=== PATIENT | male | born 1980 | race Hispanic/Latino ===

== ENCOUNTER 2016-08-14 16:22 | Observation (INO) | payer SELFPAY ==
[~2016-08-14] VITALS: Ht 167.6 cm; Wt 65.1 kg
[2016-08-14] MEDS ORDERED: PRD10T PO (16:58)
[2016-08-14] MEDS ORDERED: BACL10TA PO (16:58)
--- NOTE | 2016-08-14 17:59 | ED Back Pain ---
General Chief Complaint: Back Problems Stated Complaint: BACK PAIN Nursing Triage Note: PT CO NECK AND CERVICAL PAIN STARTED IN JUNE, CO OF R HAND NUMBNESS TO SHOULDER, STARTED YESTERDAY, STATES NOT ABLE TO WALK WITHOUT CRUTCHES. HAS BEEN SEEN IN [place] AND [facility] Sepsis Screen: No Definite Risk Source of Information: Patient Exam Limitations: No Limitations History of Present Illness Time Seen by Provider: 17:57 Initial Comments To ER with right arm numbness for the past week. States that his legs feel very weak and is unable to walk without using crutches. The right arm numbness is a new symptom but the leg weakness has been going on for a few months. He was seen at [facility] in [place] a little over a month ago and was ultimately transferred to [facility] in [place]. Ultimately he was placed on prednisone and baclofen which she continues to be on. Those medications did initially tremendously improve his symptoms. Location: C-Spine Timing/Duration: Getting Worse, Intermittent Severity: Moderate Associated Symptoms: fever Allergies and Home Medications Allergies Coded Allergies: No Allergy Information Available (Unverified , 05/14/14) Home Medications Baclofen 10 Mg Tablet, 10 MG PO TID, (Reported) Prednisone 10 Mg Tab, 10 MG PO DAILY, (Reported) Constitutional: see HPI EENTM: see HPI Respiratory: no symptoms reported Cardiovascular: no symptoms reported Genitourinary: no symptoms reported Musculoskeletal: see HPI, back pain Skin: no symptoms reported Past Gbadlbt-Gugdxl-Ycfkmv Hx Patient Social History Alcohol Use: Denies Use Recreational Drug Use: No Smoking Status: Never a Smoker Recent Foreign Travel: No Contact w/Someone Who Travel: No Recent Infectious Disease Expo: No Physical Exam Vital Signs Vital Sign - Last 12Hours 08/14/16 16:40 Temp 99.6 Pulse 70 Resp 18 B/P (MAP) 95/59 Pulse Ox 97 O2 Delivery Room Air Capillary Refill : Less Than 3 Seconds General Appearance: No Apparent Distress, WD/WN HEENT: PERRL/EOMI, TMs Normal Neck: Full Range of Motion, Other (pain without tenderness to palpation of the occiput and cervical spine) Cardiovascular: Regular Rate, Rhythm Respiratory: Chest Non Tender, Normal Breath Sounds, No Accessory Muscle Use, No Respiratory Distress Gastrointestinal: Normal Bowel Sounds, Non Tender, Soft Extremity: Normal Capillary Refill, Normal Inspection Neurologic/Psychiatric: Alert, Oriented x3 Skin: Normal Color, Warm/Dry Comments Reflexes are 2 out of 5 throughout. He states that lower extremities feel little bit numb bilaterally however he maintains sensation to light skin touch with a paper clip and sharp and dull differentiation bilaterally. Progress/Results/Core Measures Results/Orders Lab Results Laboratory Tests Test 08/14/16 18:05 08/14/16 19:20 Range/Units Urine Color YELLOW Urine Clarity CLEAR Urine pH 8 5-9 Urine Specific [place] 1.010 L 1.016-1.022 Urine Protein NEGATIVE NEGATIVE Urine Glucose (UA) NEGATIVE NEGATIVE Urine Ketones NEGATIVE NEGATIVE Urine Nitrite NEGATIVE NEGATIVE Urine Bilirubin NEGATIVE NEGATIVE Urine Urobilinogen NORMAL NORMAL MG/DL Urine Leukocyte Esterase 1+ H NEGATIVE Urine RBC (Auto) NEGATIVE NEGATIVE Urine RBC NONE /HPF Urine WBC NONE /HPF Urine Squamous Epithelial Cells NONE /HPF Urine Crystals NONE /LPF Urine Bacteria NEGATIVE /HPF Urine Casts NONE /LPF Urine Mucus NEGATIVE /LPF Urine Culture Indicated NO White Blood Count 11.2 H 4.3-11.0 10^3/uL Red Blood Count 5.27 4.35-5.85 10^6/uL Hemoglobin 15.7 13.3-17.7 G/DL Hematocrit 45 40-54 % Mean Corpuscular Volume 85 80-99 FL Mean Corpuscular Hemoglobin 30 25-34 PG Mean Corpuscular Hemoglobin Concent 35 32-36 G/DL Red Cell Distribution Width 12.2 10.0-14.5 % Platelet Count 215 130-400 10^3/uL Mean Platelet Volume 11.0 H 7.4-10.4 FL Neutrophils (%) (Auto) 76 H 42-75 % Lymphocytes (%) (Auto) 15 12-44 % Monocytes (%) (Auto) 8 0-12 % Eosinophils (%) (Auto) 1 0-10 % Basophils (%) (Auto) 0 0-10 % Neutrophils # (Auto) 8.5 H 1.8-7.8 X 10^3 Lymphocytes # (Auto) 1.6 1.0-4.0 X 10^3 Monocytes # (Auto) 0.9 0.0-1.0 X 10^3 Eosinophils # (Auto) 0.1 0.0-0.3 10^3/uL Basophils # (Auto) 0.0 0.0-0.1 10^3/uL Erythrocyte Sedimentation Rate 8 0-15 MM/HR Sodium Level 139 135-145 MMOL/L Potassium Level 3.7 3.6-5.0 MMOL/L Chloride Level 105 98-107 MMOL/L Carbon Dioxide Level 23 21-32 MMOL/L Anion Gap 11 5-14 MMOL/L Blood Urea Nitrogen 11 7-18 MG/DL Creatinine 0.86 0.60-1.30 MG/DL Estimat Glomerular Filtration Rate > 60 BUN/Creatinine Ratio 13 Glucose Level 107 H 70-105 MG/DL Calcium Level 9.8 8.5-10.1 MG/DL Total Bilirubin 0.5 0.1-1.0 MG/DL Aspartate Amino Transf (AST/SGOT) 17 5-34 U/L Alanine Aminotransferase (ALT/SGPT) 21 0-55 U/L Alkaline Phosphatase 65 40-136 U/L Total Protein 7.5 6.4-8.2 G/DL Albumin 4.5 3.2-4.5 G/DL My Orders Orders - YUDITH ANGELES CLASS B [employer]IVER Mri Cervical Spine W/O Contras (08/14/16 17:36) Mri Thoracic Spine W/O Con (08/14/16 17:36) Mri Lumbar Spine W/O Contrast (08/14/16 17:36) Ua Culture If Indicated (08/14/16 18:00) Cbc With Automated Diff (08/14/16 18:00) Comprehensive Metabolic Panel (08/14/16 18:00) Erythrocyte Sedimentation Rate (08/14/16 18:00) Saline Lock/Iv-Start (08/14/16 18:00) Methylprednisolone Sod Succ (Solu-Medrol (08/14/16 18:30) Ns Iv 500 Ml (Sodium Chloride 0.9%) (08/14/16 18:30) Acute Abd Series (08/14/16 18:40) Bladder Scan (08/14/16 19:48) Fentanyl Injection (Sublimaze Injection (08/14/16 20:30) Medications Given in ED Current Medications Medications Dose Ordered Sig/Joanne Route Start Time Stop Time Status Last Admin Dose Admin Fentanyl Citrate 50 mcg ONCE ONCE IVP 08/14/16 20:30 08/14/16 20:31 DC 08/14/16 20:38 50 MCG Methylprednisolone Sodium Succinate 1000 mg/Sodium Chloride 100 ml @ 100 mls/hr ONCE ONCE IV 08/14/16 18:30 08/14/16 19:29 DC 08/14/16 19:33 100 MLS/HR Vital Signs/I&O Vital Sign - Last 12Hours 08/14/16 08/14/16 16:40 20:38 Temp 99.6 99.6 Pulse 70 Resp 18 B/P (MAP) 95/59 Pulse Ox 97 O2 Delivery Room Air Blood Pressure Mean: 71 Progress Note : Progress Note 1812-patient is able to ambulate with the use of crutches to the bathroom that his gait is very abnormal. He does not have urinary retention as he is able to urinate for us on command. Diagnostic Imaging Diagonstic Imaging: Xray, MRI Comments NAME: EDNA WHITTAKER [facility] REC#: [id number] PT STATUS: REG ER : 1980 PHYSICIAN: YUDITH ANGELES APRN ADMIT DATE: 08/14/16/ER Draft Date of Exam:08/14/16 MRI LUMBAR SPINE W/O CONTRAST PROCEDURE: MRI lumbar spine. TECHNIQUE: Multiplanar, multisequence MRI of the lumbar spine was performed without contrast. INDICATION: Lumbar spine pain for one month. No known injury. FINDINGS: There is normal height and alignment of the lumbar vertebral bodies. Disc spaces are well maintained. No disc herniation or bony stenosis is seen at any level. There is minimal bulging of the annulus at L4-L5. There is no fracture. There is no mass. IMPRESSION: No significant abnormality is seen. Dictated on workstation # [id number] Dict: 08/14/161915 Trans: 08/14/161917 [id number] Interpreted by: CATRACHO BAIRD MD Electronically signed by: NAME: EDNA WHITTAKER [facility] REC#: [id number] PT STATUS: REG ER : 1980 PHYSICIAN: YUDITH ANGELES APRN ADMIT DATE: 08/14/16/ER Signed Date of Exam:08/14/16 MRI CERVICAL SPINE W/O CONTRAS PROCEDURE: MR imaging cervical spine without contrast. TECHNIQUE: Multiplanar, multisequence MR imaging of the cervical spine was performed without contrast. INDICATION: 36-year-old male with upper spine pain for one month, no known injury or previous spine surgeries COMPARISONS: None FINDINGS: The craniovertebral junction is normal. The cervical cord does show several small foci of increased T2 signal on the mid cervical level to the upper thoracic at T1 and T2 levels. There is no evidence of cord edema or cord expansion. Cervical vertebral bodies appear well aligned and vertebral body heights appear well-maintained. Discs appear reasonably well hydrated with some very mild disc degeneration at C5-C6. There is no evidence of canal stenosis or neuroforaminal encroachment. The visualized vascular flow voids are unremarkable. The parapharyngeal and paraspinous soft tissues are also grossly unremarkable. IMPRESSION: Small focal areas of increased to T2 signal within the mid and lower cervical cord and the upper cervical cord. No significant cord edema is seen. Differential includes possible demyelinating process such as MS. A transverse myelitis is within differential. Remote possibility of a neoplastic process is not excluded. A postcontrast study as well as MRI of the total spine including thoracic and lumbar spine is recommended. There are no areas of canal stenosis or neuroforaminal encroachment. Dictated by: Dictated on workstation # [id number] Dict: 08/14/161837 Trans: 08/14/161900 [id number] Interpreted by: OLMAN CONNOLLY MD Electronically signed by: OLMAN CONNOLLY MD 08/14/161900 NAME: EDNA WHITTAKER [facility] REC#: [id number] PT STATUS: REG ER : 1980 PHYSICIAN: YUDITH ANGELES APRN ADMIT DATE: 08/14/16/ER Signed Date of Exam:08/14/16 MRI THORACIC SPINE W/O CON INDICATION: Upper spine pain for one month. TECHNIQUE: Multiplanar imaging of the thoracic spine was performed without contrast. COMPARISON: No prior studies are available for comparison. FINDINGS: There is normal height and alignment of the thoracic vertebral bodies. No disc herniation or bony stenosis is seen at any level. No acute bony abnormality is seen. There is no mass. There is no intrinsic abnormality of the thoracic cord. IMPRESSION: No significant abnormality is seen. Dictated by: Dictated on workstation # [id number] Dict: 08/14/161857 Trans: 08/14/161916 [facility] [id number] Interpreted by: CATRACHO BAIRD MD Electronically signed by: CATRACHO BAIRD MD 08/14/161916 Departure Communication Time/Spoke to Admitting Phy: 22:[address] Boone except patient for observation admission pending transportation Progress Notes 1815- old records including the discharge summary from [facility] included principle diagnosis of acute transverse myelitis. The date of this discharge summary was 07-18-16. Secondary diagnosis was acute urinary retention , paresthesia of both lower extremities and spastic paraplegia. Laboratory workup were negative, MRI showed a hyperintense signal from elevated C4 to T1 to 2 region suggestive of transverse myelitis. He was given IV methylprednisolone with improvement in lower extremities strength but only minimal improvement and gait. He was felt to have some associated anxiety and was started on Effexor. 1929-patient does not want to go back to [facility]. Would rather go to [facility]. 1945-postvoid residual bladder scan shows 110 ml in the bladder. 2022-Dr. Rodriguez from neurology has accepted the patient in transfer to the [facility]. He will be transported via ground. 2208-EMS will not be back from transport until 1 a.m. At that time, that would be their second transport to so they would be unable to transport that far again tonight according to lathing supervisor. They will be able to transport again at 8 a.m. pending no other necessary transfers. I called the [facility] who states that they will call us with a revised bed number at 730 or 8 a.m. I relayed this to tanja from EMS who is aware of the plan to transport in the morning. We will admit the patient and intensive care unit overnight with serial pulmonary function testing overnight to Dr. Boone. Patient is not critical enough to need flown. [facility] cannot transport. [facility] cannot transport. Transfer care out of [place] will not transport Impression Impression: Primary Impression: Transverse myelitis Disposition: ADMITTED INPATIENT Condition: Stable Departure-Patient Inst. Decision time for Depature: 20:22 Referrals: NO,LOCAL PHYSICIAN (PCP) Primary Care Physician YUDITH ANGELES CLASS B TRUCK DRIVER Aug 14, 2016 17:59
[2016-08-14 18:12] LABS: BILIRUBIN,URINE NEGATIVE (NEGATIVE); KETONES,URINE NEGATIVE (NEGATIVE); LEUKOCYTE ESTERASE ,URINE 1+ (NEGATIVE); NITRITE,URINE NEGATIVE (NEGATIVE); PH,URINE 8 (5-9); PROTEIN,URINE NEGATIVE (NEGATIVE); UROBILINOGEN,URINE NORMAL (NORMAL)
[2016-08-14] MEDS ORDERED: NS IV 500 ML 500 ML IV SCH (18:30)
[2016-08-14] MEDS ORDERED: methylPREDNISolone SOD SUCC 1,000 MG in NS (IVPB) 100 ML IV ONE (18:30)
--- NOTE | 2016-08-14 18:45 | Diagnostic Imaging Report ---
PROCEDURE: MR imaging cervical spine without contrast. TECHNIQUE: Multiplanar, multisequence MR imaging of the cervical spine was performed without contrast. INDICATION: 36-year-old male with upper spine pain for one month, no known injury or previous spine surgeries COMPARISONS: None FINDINGS: The craniovertebral junction is normal. The cervical cord does show several small foci of increased T2 signal on the mid cervical level to the upper thoracic at T1 and T2 levels. There is no evidence of cord edema or cord expansion. Cervical vertebral bodies appear well aligned and vertebral body heights appear well-maintained. Discs appear reasonably well hydrated with some very mild disc degeneration at C5-C6. There is no evidence of canal stenosis or neuroforaminal encroachment. The visualized vascular flow voids are unremarkable. The parapharyngeal and paraspinous soft tissues are also grossly unremarkable. IMPRESSION: Small focal areas of increased to T2 signal within the mid and lower cervical cord and the upper cervical cord. No significant cord edema is seen. Differential includes possible demyelinating process such as MS. A transverse myelitis is within differential. Remote possibility of a neoplastic process is not excluded. A postcontrast study as well as MRI of the total spine including thoracic and lumbar spine is recommended. There are no areas of canal stenosis or neuroforaminal encroachment. Dictated by: Dictated on workstation # [id number]
--- NOTE | 2016-08-14 19:02 | Diagnostic Imaging Report ---
INDICATION: Upper spine pain for one month. TECHNIQUE: Multiplanar imaging of the thoracic spine was performed without contrast. COMPARISON: No prior studies are available for comparison. FINDINGS: There is normal height and alignment of the thoracic vertebral bodies. No disc herniation or bony stenosis is seen at any level. No acute bony abnormality is seen. There is no mass. There is no intrinsic abnormality of the thoracic cord. IMPRESSION: No significant abnormality is seen. Dictated by: Dictated on workstation # [id number]
--- NOTE | 2016-08-14 19:18 | Diagnostic Imaging Report ---
PROCEDURE: MRI lumbar spine. TECHNIQUE: Multiplanar, multisequence MRI of the lumbar spine was performed without contrast. INDICATION: Lumbar spine pain for one month. No known injury. FINDINGS: There is normal height and alignment of the lumbar vertebral bodies. Disc spaces are well maintained. No disc herniation or bony stenosis is seen at any level. There is minimal bulging of the annulus at L4-L5. There is no fracture. There is no mass. IMPRESSION: No significant abnormality is seen. Dictated by: Dictated on workstation # [id number]
--- NOTE | 2016-08-14 19:25 | Diagnostic Imaging Report ---
INDICATION: Back pain. Transverse myelitis The upright chest shows no abnormality. Supine and upright views of the abdomen show normal bowel gas pattern. There is no free intraperitoneal air. No mass or calculus is seen. There is no bony abnormality. IMPRESSION: No abnormality is seen. Dictated by: Dictated on workstation # [id number]
[2016-08-14 19:37] LABS: BASOPHILS % (AUTO) 0 % (0-10); EOSINOPHILS # (AUTO) 0.1 10^3/uL (0.0-0.3); EOSINOPHILS % (AUTO) 1 % (0-10); LYMPHOCYTES # (AUTO) 1.6 X 10^3 (1.0-4.0); LYMPHOCYTES % (AUTO) 15 % (12-44); MEAN CORPUSCULAR HEMOGLOBIN 30 PG (25-34); MEAN CORPUSCULAR HGB CONC 35 G/DL (32-36); MEAN CORPUSCULAR VOLUME 85 FL (80-99); MONOCYTES # (AUTO) 0.9 X 10^3 (0.0-1.0); MONOCYTES % (AUTO) 8 % (0-12); NEUTROPHILS # (AUTO) 8.5 X 10^3 (1.8-7.8); NEUTROPHILS % (AUTO) 76 % (42-75); PLATELET COUNT 215 10^3/uL (130-400); RED BLOOD COUNT 5.27 10^6/uL (4.35-5.85); RED CELL DISTRIBUTION WIDTH 12.2 % (10.0-14.5); WHITE BLOOD COUNT 11.2 10^3/uL (4.3-11.0)
[2016-08-14 19:58] LABS: ALANINE AMINOTRANSFERASE 21 U/L (0-55); ALBUMIN 4.5 G/DL (3.2-4.5); ANION GAP 11 MMOL/L (5-14); ASPARTATE AMINO TRANSFERASE 17 U/L (5-34); BILIRUBIN,TOTAL 0.5 MG/DL (0.1-1.0); BLOOD UREA NITROGEN 11 MG/DL (7-18); BUN/CREATININE RATIO 13; CALCIUM 9.8 MG/DL (8.5-10.1); CARBON DIOXIDE 23 MMOL/L (21-32); CHLORIDE 105 MMOL/L (98-107); CREATININE SERUM 0.86 MG/DL (0.60-1.30); GFR ESTIMATED > 60; GLUCOSE 107 MG/DL (70-105); POTASSIUM 3.7 MMOL/L (3.6-5.0); SODIUM 139 MMOL/L (135-145); TOTAL PROTEIN 7.5 G/DL (6.4-8.2)
[2016-08-14 20:08] LABS: ERYTHROCYTE SEDIMENTATION RATE 8 MM/HR (0-15)
[2016-08-14] MEDS ORDERED: fentaNYL INJECTION 100 MCG/2 ML AMP IVP ONE (20:30)
[2016-08-15] VITALS (15 sets, daily range): BP systolic 100–133; BP diastolic 60–74
[2016-08-15] MEDS ORDERED: NS IV 1000 ML 1,000 ML IV SCH (00:45)
[2016-08-15] MEDS ORDERED: LORA1TAB PO (08:46)
--- NOTE | 2016-08-15 09:20 | Short Stay Summary-Hospitalist ---
HPI History of Present Illness: HPI/Chief Complaint The patient is a 36-year-old male. His Dutch is rated fair. He reports that about 2 months ago he began to have trouble with his legs and the ability to walk. He was seen at [facility] and transferred to [facility] in [place]. He ultimately was given a diagnosis of transverse myelitis. He was placed on steroids and had some initial improvement. He returned to [place] on or about July 18. He reports that he has been slowly but surely declining since then. He is walking with a walker and was able to do so yesterday. He reports that yesterday he had much more pain in his left leg then he had had before. He also reports some loss of function in his left hand. This especially applies to fingers 4 and 5. He also reports some numbness in the ulnar half of the left volar forearm. After his presentation in the emergency room arrangements were made to transfer him to [facility] and a bed was secured. [facility] ambulance service was unable to supply transfer at that time and promised that this morning. agreed to reassign a bed this morning. He was placed on steroids to begin his treatment. Source: patient Exam Limitations: no limitations Date Seen 08/15/16 Attending Physician Adan Guzman MD PCP No,Local Physician Referring Physician Date of Admission Aug 14, 2016 at 22:16 Home Medications & Allergies Home Medications Reviewed patient Home Medication Reconciliation Form Allergies Allergies Coded Allergies No Allergy Information Available (Unverified05/14/14) Past Ekpshlc-Ugvesr-Ejkgmo Hx Patient Social History Alcohol Use: Denies Use Recreational Drug Use: No Smoking Status: Never a Smoker Physical Abuse Screen: No Sexual Abuse: No Recent Foreign Travel: No Contact w/other who traveled: No Recent Hopitalizations: Yes Recent Infectious Disease Expo: No Seasonal Allergies Seasonal Allergies: No Review of Systems Constitutional: see HPI EENTM: no symptoms reported Respiratory: no symptoms reported Cardiovascular: no symptoms reported Gastrointestinal: no symptoms reported Genitourinary: no symptoms reported Musculoskeletal: see HPI Skin: no symptoms reported Psychiatric/Neurological: See HPI, Numbness, Weakness Physical Exam Physical Exam Vital Signs Vital Sign - Last 12Hours 08/14/16 08/15/16 16:40 02:20 Temp 99.6 Pulse 70 Resp 18 B/P (MAP) 95/59 Pulse Ox 97 O2 Delivery Room Air FiO2 97 Capillary Refill : Less Than 3 Seconds General Appearance: Mild Distress Eyes: Bilateral Eye Normal Inspection HEENT: Normal ENT Inspection Neck: Normal Inspection Respiratory: Chest Non Tender, Lungs Clear, Normal Breath Sounds, No Accessory Muscle Use, No Respiratory Distress Cardiovascular: Regular Rate, Rhythm, No Edema, No Gallop, No JVD, No Murmur, Normal Peripheral Pulses Gastrointestinal: Normal Bowel Sounds, No Organomegaly, No Pulsatile Mass, Non Tender, Soft Back: Normal Inspection, No CVA Tenderness, No Vertebral Tenderness Extremity: Normal Capillary Refill, Normal Inspection, Normal Range of Motion, Non Tender, No Calf Tenderness, No Pedal Edema Skin: Normal Color, Warm/Dry Lymphatic: No Adenopathy (0 the patient Exhibits) Comments The patient exhibits inability to fully clench his left hand. There appears to be some numbness particularly in the fifth finger but also perhaps the fourth. He is able to straight leg lift bilaterally with heels off the bed. Results Results/Procedures Lab Laboratory Tests 08/14/16 19:20 Short Stay Diagnosis Discharge Diagnosis-Short Stay Admission Diagnosis History of transverse myelitis with recrudescence of symptoms Final Discharge Diagnosis History of transverse myelitis with recrudescence of symptoms Conclusion Plan Transfer to [facility] for definitive Clinical Quality Measures DVT/VTE Risk/Contraindication: Risk Factor Score Per Nursin RFS Level Per Nursing on Admit: 2=Moderate ADAN GUZMAN MD Aug 15, 2016 09:20
[2016-08-15] MEDS ORDERED: CATHETER FLUSH 10 ML SYR IV PRN (09:30)
== END 2016-08-15 09:10 | disposition short-term general hospital (02) ==
LOC: EDUNIT# 16:22 → ER 16:25 → ICU 22:16 → UNDOADMOB 22:16 → ICU 23:00 → UNDODISOB 08-15 09:10
PROVIDERS: ADMIT Internal Medicine; ATTEND Internal Medicine
DX: G37.3 Acute transverse myelitis in demyelinating disease of central nervous system (principal)
CPT/HCPCS: 36415; 72141; 72146; 72148; 74022; 80053; 81000; 85025; 85652; 94150; 96361; 96374; 96375; G0378

== ENCOUNTER 2016-11-13 18:06 | Emergency (ER) | payer SELFPAY ==
[~2016-11-13] VITALS: Ht 167.6 cm; Wt 65.1 kg
[~2016-11-13 18:06] MED LIST: BACL10TA PO; LORA1TAB PO; PRD10T PO
[2016-11-13] MEDS ORDERED: fentaNYL INJECTION 100 MCG/2 ML AMP IVP STA (19:05)
[2016-11-13] MEDS ORDERED: NS IV 500 ML 500 ML IV ONE (19:05)
--- NOTE | 2016-11-13 19:05 | ED Neurological Problem ---
General Chief Complaint: General Problems/Pain Stated Complaint: UPPER BACK PAIN Nursing Triage Note: PT AMBULATED TO ROOM WITH ONE CRUTCH. PT NEPHEW CAME TO ROOM WITH US TO TRANSLATE. PT HAS BEEN HERE BEFORE FOR THE SAME CHRONIC UPPER BACK PAIN AND WAS SENT TO AND MEDICATION WAS RECEIVED. PT STATES BACK PAIN COME BACK FOR 2 MONTHS NOW. PT STATES THAT HIS BILAT ARMS FEEL LIKE "THEY ARE BURNING". NO OTHER ISSUES NOTED AT THIS TIME. Nursing Sepsis Screen: No Definite Risk Source: patient, family (provided interpretation) Exam Limitations: language barrier History of Present Illness Time seen by provider: 18:51 Initial Comments Patient presents to ER by private conveyance with his family were provided and tripped interpretation Faroese and Italian. He is complaining of burning in his arms with acute pain and numbness on the ulnar side of his bilateral arms. He also feels a burning pain in his upper thoracic spine. He also has spasming and tightness as well as pain in both sides of his legs. He states this started about middle of July 2016 when he came in the ER and was worked up given MRIs started on high-dose steroids and then transferred to and see to see a neurologist. Since then they put him on steroids and he got better but he felt that the pain is always been there. He has been on 20 mg prednisone twice daily for about for 5 months. He states he does not feel that is helping. He did miss an appointment with a neurologist because of a miscommunication and has been calling every week to get another appointment but does not have an appointment yet. He says he is not interested in returning to today rather he just wants us to give him something to make the pain go away. Review of old records show MRIs and neurology notes from [facility] where he was diagnosed with transverse myelitis and started on high potency steroids where his symptoms began to improve. He was in set up for outpatient follow-up. Allergies and Home Medications Allergies Coded Allergies: No Allergy Information Available (Unverified , 05/14/14) Home Medications Baclofen 10 Mg Tablet, 5 MG PO TID PRN for MUSCLE SPASMS, (Reported) TAKES 1/2 OF A (10 MG) TABLET Lorazepam 1 Mg Tablet, 1 MG PO Q6H PRN for MUSCLE SPASMS, (Reported) Prednisone 10 Mg Tab, 10 MG PO DAILY, (Reported) Constitutional: No chills, No diaphoresis, No dizziness, No fever Eyes: Denies Blindness, Denies Blurred Vision Respiratory: No cough, No short of breath Cardiovascular: No chest pain, No edema, No syncope Gastrointestinal: No abdominal pain, No constipation, No diarrhea, No nausea Genitourinary: No dysuria, No frequency, No incontinence (bowel or bladder) Musculoskeletal: see HPI Skin: No pruritus, No rash Psychiatric/Neurological: See HPI, Denies Headache, Numbness Past Siwxbah-Abfpfu-Farscc Hx Patient Social History Alcohol Use: Denies Use Recreational Drug Use: No Smoking Status: Never a Smoker 2nd Hand Smoke Exposure: No Recent Foreign Travel: No Contact w/Someone Who Travel: No Recent Infectious Disease Expo: No Recent Hopitalizations: Yes ([facility] MONTHS AGO DUE TO BACK PAIN) Immunizations Up To Date Tetanus Booster (TDap): Unknown Seasonal Allergies Seasonal Allergies: No Physical Exam Vital Signs Vital Sign - Last 12Hours 11/13/16 18:26 Temp 98.2 Pulse 71 Resp 18 B/P (MAP) 133/90 Pulse Ox 98 O2 Delivery Room Air Capillary Refill : Less Than 3 Seconds General Appearance: WD/WN, mild distress HEENT: PERRL/EOMI, pharynx normal Neck: non-tender, full range of motion, supple, normal inspection Respiratory: chest non-tender, lungs clear, normal breath sounds Cardiovascular: normal peripheral pulses, regular rate, rhythm, no edema Peripheral Pulses: 4+ Dorsalis Pedis (R), 4+ Left Dors-Pedis (L), 4+ Radial Pulses (R), 4+ Radial Pulses (L) Gastrointestinal: normal bowel sounds, non tender, soft Back: normal inspection, vertebral tenderness (upper thoracic midline) Extremities: normal range of motion, normal inspection, no pedal edema, normal capillary refill Neurologic/Psychiatric: racing board marker II-XII nml as tested, alert, oriented x 3, No abnormal cerebellar tests, sensory deficit (ulnar sided paresthesias and I will dining especially on the left arm from the fingertips of fourth and fifth digit all the way up to his shoulder laterally. General paresthesias and tightness and pain in both legs above and below the knee area) Crainal Nerves: normal hearing, normal speech, PERRL Coordination/Gait: normal finger to nose, abnormal gait (using a crutch with a antalgic rate) Motor/Sensory: no motor deficit, no pronator drift, negative Babinski's sign Reflexes: 2+ Bicep (R) (2 out of 4 bilateral brachial radialis DTR), 2+ Bicep ( L) Skin: normal color, warm/dry Lymphatic: no adenopathy Progress/Results/Core Measures Results/Orders Lab Results Laboratory Tests Test 11/13/16 18:36 Range/Units White Blood Count 9.3 4.3-11.0 10^3/uL Red Blood Count 5.18 4.35-5.85 10^6/uL Hemoglobin 15.5 13.3-17.7 G/DL Hematocrit 44 40-54 % Mean Corpuscular Volume 85 80-99 FL Mean Corpuscular Hemoglobin 30 25-34 PG Mean Corpuscular Hemoglobin Concent 35 32-36 G/DL Red Cell Distribution Width 12.0 10.0-14.5 % Platelet Count 187 130-400 10^3/uL Mean Platelet Volume 10.6 H 7.4-10.4 FL Neutrophils (%) (Auto) 72 42-75 % Lymphocytes (%) (Auto) 20 12-44 % Monocytes (%) (Auto) 8 0-12 % Eosinophils (%) (Auto) 0 0-10 % Basophils (%) (Auto) 0 0-10 % Neutrophils # (Auto) 6.7 1.8-7.8 X 10^3 Lymphocytes # (Auto) 1.8 1.0-4.0 X 10^3 Monocytes # (Auto) 0.8 0.0-1.0 X 10^3 Eosinophils # (Auto) 0.0 0.0-0.3 10^3/uL Basophils # (Auto) 0.0 0.0-0.1 10^3/uL Erythrocyte Sedimentation Rate 4 0-15 MM/HR Sodium Level 139 135-145 MMOL/L Potassium Level 3.5 L 3.6-5.0 MMOL/L Chloride Level 103 98-107 MMOL/L Carbon Dioxide Level 25 21-32 MMOL/L Anion Gap 11 5-14 MMOL/L Blood Urea Nitrogen 13 7-18 MG/DL Creatinine 0.90 0.60-1.30 MG/DL Estimat Glomerular Filtration Rate > 60 BUN/Creatinine Ratio 14 Glucose Level 117 H 70-105 MG/DL Calcium Level 9.1 8.5-10.1 MG/DL Total Bilirubin 0.7 0.1-1.0 MG/DL Aspartate Amino Transf (AST/SGOT) 14 5-34 U/L Alanine Aminotransferase (ALT/SGPT) 23 0-55 U/L Alkaline Phosphatase 50 40-136 U/L C-Reactive Protein High Sensitivity 0.01 0.00-0.50 MG/DL Total Protein 6.9 6.4-8.2 GM/DL Albumin 4.2 3.2-4.5 GM/DL My Orders Orders - ALEJANDRO ZAMORA Cbc With Automated Diff (11/13/16 19:05) Comprehensive Metabolic Panel (11/13/16 19:05) Hs C Reactive Protein (11/13/16 19:05) Erythrocyte Sedimentation Rate (11/13/16 19:05) Saline Lock/Iv-Start (11/13/16 19:05) Ns Iv 500 Ml (Sodium Chloride 0.9%) (11/13/16 19:05) Fentanyl Injection (Sublimaze Injection (11/13/16 19:05) Lorazepam Injection (Ativan Injection) (11/13/16 19:15) Methylprednisolone Sod Succ (Solu-Medrol (11/13/16 19:15) Potassium Chloride (Tablet) (Klor Con Ta (11/13/16 20:45) Baclofen Tablet (Lioresal Tablet) (11/13/16 21:00) Medications Given in ED Current Medications Medications Dose Ordered Sig/Joanne Route Start Time Stop Time Status Last Admin Dose Admin Lorazepam 2 mg ONCE ONCE IVP 11/13/16 19:15 11/13/16 19:16 DC 11/13/16 19:15 2 MG Methylprednisolone Sodium Succinate 1000 mg/Sodium Chloride 100 ml @ 100 mls/hr ONCE ONCE IV 11/13/16 19:15 11/13/16 20:14 DC 11/13/16 19:42 100 MLS/HR Sodium Chloride 500 ml @ 0 mls/hr Q0M ONCE IV 11/13/16 19:05 11/13/16 19:08 DC 11/13/16 19:16 500 MLS/HR Vital Signs/I&O Vital Sign - Last 12Hours 11/13/16 18:26 Temp 98.2 Pulse 71 Resp 18 B/P (MAP) 133/90 Pulse Ox 98 O2 Delivery Room Air Blood Pressure Mean: 104 Progress Note : Time: 19:34 Progress Note We'll get him out of immediate pain with some fentanyl and looks accuse using Ativan and diazepam while inpatient for his anxiety so we will give him 2 mg Ativan today since he is quite anxious and this may be contributed to his allodynia. We'll then go ahead and re-invigorated his steroid therapy with another gram of Solu-Medrol. I put a call into to speak to the neurologist who is action installer, Chapito Calvert Consults Consults : Consults Notes Spoke with Chapito Calvert, neurology at [facility]. He recommends that we initiate baclofen 5 mg 3 times a day and can titrate up as tolerated to 20 mg 3 times a day. He also recommended gabapentin [place] restarted at 300 mg 3 times a day and can titrate up to 900 mg 3 times a day. He also recommends backing off the prednisone from 20 twice a day to 20 once a day in the morning. He then recommends the patient follow up soon as he can get in with neurology. Departure Impression Impression: Primary Impression: Transverse myelitis Disposition: 01 HOME, SELF-CARE Condition: Improved Departure-Patient Inst. Decision time for Depature: 20:53 Referrals: NO,LOCAL PHYSICIAN (PCP) Primary Care Physician Patient Instructions: Muscle Spasms (DC) Add. Discharge Instructions: First and most important thing you can do is to establish with a primary care physician to help you manage these medicines as well as write refills. The neurologist at has recommended that we start you on a new medicine called baclofen at 5 mg 3 times a day. This medicine is going to help with your muscle spasms in the legs and arms as well as possibly some in your back. He recommends over the next few weeks that she could titrate that medicine up 5 mg at a time until you at a maximum dose of 20 mg 3 times a day or your spasms are controlled. Be aware that this medicine can cause drowsiness and should not be combined with opiates or alcohol. You should take caution while operating heavy machinery or driving long distances. The neurologist also would like to restart gabapentin at 300 mg 3 times a day. This medicine will help with the pain you're feeling in her back as well as your arms that is caused by nerves. This medicine can be titrated up to a maximum of 900 mg 3 times a day or until you get good control of your pain. Be aware that this medicine can also cause drowsiness and you should be cautious while driving or operating heavy machinery. The neurologist has asked that you reduce your prednisone to one 20 mg tablet in the morning. You should reestablish an appointment with your neurologist as soon as possible. All discharge instructions reviewed with patient and/or family. Voiced understanding. Scripts Prednisone (Prednisone) 20 Mg Tab 20 MG PO DAILY for 30 Days, #30 TAB 0 Refills Prov: ALEJANDRO ZAMORA 11/13/16 Gabapentin (Gabapentin) 300 Mg Capsule 300 MG PO TID for 30 Days, #90 CAP 0 Refills Prov: ALEJANDRO ZAMORA 11/13/16 Baclofen (Baclofen) 10 Mg Tablet 5 MG PO TID Y for SPASMS for 30 Days, #90 TAB 0 Refills Prov: ALEJANDRO ZAMORA 11/13/16 ALEJANDRO ZAMORA Nov 13, 2016 19:05
[2016-11-13 19:12] LABS: BASOPHILS % (AUTO) 0 % (0-10); EOSINOPHILS % (AUTO) 0 % (0-10); LYMPHOCYTES # (AUTO) 1.8 X 10^3 (1.0-4.0); LYMPHOCYTES % (AUTO) 20 % (12-44); MEAN CORPUSCULAR HEMOGLOBIN 30 PG (25-34); MEAN CORPUSCULAR HGB CONC 35 G/DL (32-36); MEAN CORPUSCULAR VOLUME 85 FL (80-99); MEAN PLATELET VOLUME 10.6 FL (7.4-10.4); MONOCYTES # (AUTO) 0.8 X 10^3 (0.0-1.0); MONOCYTES % (AUTO) 8 % (0-12); NEUTROPHILS # (AUTO) 6.7 X 10^3 (1.8-7.8); NEUTROPHILS % (AUTO) 72 % (42-75); PLATELET COUNT 187 10^3/uL (130-400); RED BLOOD COUNT 5.18 10^6/uL (4.35-5.85); WHITE BLOOD COUNT 9.3 10^3/uL (4.3-11.0)
[2016-11-13] MEDS ORDERED: LORazepam INJ 2 MG/ML (ATIVAN) VIAL IVP ONE (19:15)
[2016-11-13] MEDS ORDERED: methylPREDNISolone SOD SUCC 1,000 MG in NS (IVPB) 100 ML IV ONE (19:15)
[2016-11-13 19:26] LABS: ALANINE AMINOTRANSFERASE 23 U/L (0-55); ALBUMIN 4.2 GM/DL (3.2-4.5); ANION GAP 11 MMOL/L (5-14); ASPARTATE AMINO TRANSFERASE 14 U/L (5-34); BILIRUBIN,TOTAL 0.7 MG/DL (0.1-1.0); BLOOD UREA NITROGEN 13 MG/DL (7-18); BUN/CREATININE RATIO 14; CALCIUM 9.1 MG/DL (8.5-10.1); CARBON DIOXIDE 25 MMOL/L (21-32); CHLORIDE 103 MMOL/L (98-107); GFR ESTIMATED > 60; GLUCOSE 117 MG/DL (70-105); POTASSIUM 3.5 MMOL/L (3.6-5.0); SODIUM 139 MMOL/L (135-145); TOTAL PROTEIN 6.9 GM/DL (6.4-8.2); hs C REACTIVE PROTEIN 0.01 MG/DL (0.00-0.50)
[2016-11-13 19:47] LABS: ERYTHROCYTE SEDIMENTATION RATE 4 MM/HR (0-15)
[2016-11-13] MEDS ORDERED: KCL 10 MEQ TAB (MICRO K) PO ONE (20:45)
[2016-11-13] MEDS ORDERED: PRD20T PO (20:59)
[2016-11-13] MEDS ORDERED: BACL10TA PO (20:59)
[2016-11-13] MEDS ORDERED: GABA-488 PO (20:59)
[2016-11-13] MEDS ORDERED: BACLOFEN 10 MG (LIORESAL) TAB PO SCH (21:00)
[2016-11-13 21:10] VITALS: BP 133/85
== END 2016-11-13 21:10 | disposition home or self-care (01) ==
LOC: EDUNIT# 18:06 → ER 18:08
DX: G37.3 Acute transverse myelitis in demyelinating disease of central nervous system (principal)
CPT/HCPCS: 36415; 80053; 85025; 85652; 86141; 96365; 96375

== ENCOUNTER 2016-12-25 19:15 | Emergency (ER) | payer SELFPAY ==
[~2016-12-25] VITALS: Ht 162.6 cm; Wt 68.0 kg
[~2016-12-25 19:15] MED LIST changes: +GABA-488 PO; +PRD20T PO
--- OUTSIDE RECORDS SUMMARY | 2016-12-25 19:21 | XMS REPORT | Clinical Summary ---
Author Author [facility] Organization [facility] Address Unknown Phone Unavailable Care Team Providers Care Telemarketing Supervisor Name Role Phone PCP Unavailable Source Comments Some departments are not documenting in the electronic medical record. If you do not see the information that you expected, contact Release of Information in the Health Information Management department at [phone] for further assistance in locating additional records.[facility] Allergies Active Allergy Reactions Severity Noted Date Comments Iodinated Contrast- Oral ITCHING Medium 08/16/2016 Patient states he gets And Iv Dye itchy all over when given CT iodinated contrast, has not ever been pre-medicated before. Current Medications Prescription Sig. Disp. Refills Start End Date Status Date LORazepam (ATIVAN) 1 mg Take 1 mg by mouth every Active tablet 6 hours as needed for Other... (Spasms). calcium carbonate/vitamin Take 1 Tab by mouth twice 08/22/19 Active D-3 (OSCAL-500+D) 1250 daily. While on steroids 17 mg/[address](+) Take 1 Cap by mouth daily 08/22/19 Active (PRILOSEC) 20 mg capsule before breakfast. While 17 on steroids prednisone (DELTASONE) 20 60mg daily x 2 weeks, 80 Tab 0 08/22/19 Active mg tablet 50mg daily x 2 weeks, 17 40mg daily x 2 weeks with further taper to be determined by follow up. gabapentin (NEURONTIN) Take 1 Cap by mouth three 90 Cap 1 08/22/19 Active 300 mg capsule times daily. 17 tiZANidine (ZANAFLEX) 4 Take 1 Tab by mouth three 20 Tab 0 08/22/19 Active mg tablet times daily. 17 lidocaine (LIDODERM) 5 % Apply 1 Patch topically 30 Patch 0 08/22/19 Active topical patch to affected area daily. 17 Apply patch for 12 hours, then remove for 12 hours before repeating. Active Problems Problem Noted Date Transverse myelitis (HCC) 08/21/2016 Urinary retention 08/21/2016 Weakness 08/15/2016 Encounters Date Type Specialty Care Team Description 10/13/2016 Ancillary Radiology Outpatient, Radiologist Diagnosis unknown Orders (Primary Dx) from Last 3 Months Social History Tobacco Use Types Packs/Day Years Used Date Never Smoker Sex Assigned at Date Recorded Not on file Last Filed Vital Signs Vital Sign Reading Time Taken Blood Pressure 145/62 08/21/2016 2:33 PM CDT Pulse 62 08/21/2016 2:33 PM CDT Temperature 36.8 C (98.2 F) 08/21/2016 2:33 PM CDT Respiratory Rate - - Oxygen Saturation 97% 08/21/2016 2:33 PM CDT Inhaled Oxygen - - Concentration Weight 69.9 kg (154 lb) 08/20/2016 5:52 PM CDT Height 167.6 cm (5' 6") 08/20/2016 5:52 PM CDT Body Mass Index 24.86 08/20/2016 5:52 PM CDT Plan of Treatment Health Maintenance Due Date Last Done Comments PHYSICAL (COMPREHENSIVE) 07/12/1987 EXAM PERTUSSIS VACCINE 07/12/1991 TETANUS VACCINE 1997 INFLUENZA VACCINE 12/29/2016 Results Not on filefrom Last 3 Months
--- OUTSIDE RECORDS SUMMARY | 2016-12-25 19:21 | XMS REPORT | Encounter Summary ---
Author Author [facility] Organization [facility] Address Unknown Phone Unavailable Care Team Providers Care Release Of Information Specialist Name Role Phone PCP Unavailable Encounter Details Date Type Department Care Team Description 10/13/2016 Ancillary Rad Outpatient, Radiologist Diagnosis unknown Orders [address] (Primary Dx) [place], [place] [id number] Social History Tobacco Use Types Packs/Day Years Used Date Never Smoker Sex Assigned at Date Recorded Not on file as of this encounter Functional Status Functional Status Response Date of Assessment Does the patient have a hearing impairment: No 08/15/2016 as of this encounter Plan of Treatment Not on fileas of this encounter Results * MRI T-SPINE EXTERNAL IMAGING (07/18/2016 12:15 AM) Narrative This order has been auto finalized and does not contain a result. * MRI C-SPINE EXTERNAL IMAGING (07/18/2016) Narrative This order has been auto finalized and does not contain a result. in this encounter Visit Diagnoses Diagnosis Diagnosis unknown - Primary Other unknown and unspecified cause of morbidity or mortality in this encounter
[2016-12-25] MEDS ORDERED: KETOROLAC 30 MG/ML VIAL IM STA (19:32)
--- NOTE | 2016-12-25 19:45 | ED Back Pain ---
General Chief Complaint: Back Problems Stated Complaint: BACK PAIN Nursing Triage Note: worsened chronic upper back pain Nursing Sepsis Screen: No Definite Risk Source of Information: Patient, Family (niece) Exam Limitations: No Limitations History of Present Illness Time Seen by Provider: 19:32 Initial Comments Pt presents with Upper Thoracic back pain and burning in the ulnar region of the left arm. He has a known hx of transverse myelitis Dx'ed at [facility] by Dr Gill. He was in the ER 2 months ago and cared for by this provider and spoke to [facility] who made med recs and insisted he get Neuro follow up. The pt reports he called [facility] to and was told they didn't have any appts available. He is Gibraltarian only speaking. Niece providing interpretation. Allergies and Home Medications Allergies Coded Allergies: No Allergy Information Available (Unverified , 05/14/14) Home Medications Baclofen 10 Mg Tablet, 5 MG PO TID PRN for SPASMS for 30 Days, #90 Ref 0 Prescribed by: ALEJANDRO ZAMORA on 11/13/162058 Gabapentin 300 Mg Capsule, 300 MG PO TID for 30 Days, #90 Ref 0 Prescribed by: ALEJANDRO ZAMORA on 11/13/162058 Prednisone 10 Mg Tab, 10 MG PO DAILY, (Reported) Constitutional: No chills, No diaphoresis, No fever, No malaise EENTM: No ear pain, No double vision Respiratory: No cough, No short of breath Cardiovascular: No chest pain, No palpitations Gastrointestinal: No abdominal pain, No constipation, No diarrhea, No nausea Genitourinary: No discharge, No dysuria Musculoskeletal: see HPI, back pain Skin: No pruritus, No rash Psychiatric/Neurological: Denies Headache, Paresthesia Past Znkizle-Rdqhja-Oxbmos Hx Patient Social History Alcohol Use: Denies Use Recreational Drug Use: No Smoking Status: Never a Smoker 2nd Hand Smoke Exposure: No Recent Foreign Travel: No Contact w/Someone Who Travel: No Recent Infectious Disease Expo: No Recent Hopitalizations: No Immunizations Up To Date Tetanus Booster (TDap): Unknown Seasonal Allergies Seasonal Allergies: No Surgeries History of Surgeries: No Respiratory History of Respiratory Disorde: No Currently Using CPAP: No Currently Using BIPAP: No Cardiovascular History of Cardiac Disorders: No Neurological History of Neurological Disord: Yes (has been in [facility] for this weakness & pain) Genitourinary History of Genitourinary Disor: No Gastrointestinal History of Gastrointestinal Di: No Musculoskeletal History of Musculoskeletal Dis: Yes Musculoskeletal Disorders: Chronic Back Pain Endocrine History of Endocrine Disorders: No HEENT History of HEENT Disorders: No Cancer History of Cancer: No Psychosocial History of Psychiatric Problem: No Integumentary History of Skin or Integumenta: No Blood Transfusions History of Blood Disorders: No Physical Exam Vital Signs Vital Sign - Last 12Hours 12/25/16 19:28 Temp 97.1 Pulse 73 Resp 18 B/P (MAP) 125/71 Pulse Ox 98 O2 Delivery Room Air Capillary Refill : Less Than 3 Seconds General Appearance: WD/WN, Moderate Distress (using a single crutch.) HEENT: PERRL/EOMI, Pharynx Normal Neck: Full Range of Motion, Normal Inspection, Non Tender, Supple Cardiovascular: Regular Rate, Rhythm, No Edema Respiratory: Chest Non Tender, Lungs Clear, Normal Breath Sounds Peripheral Pulses: 2+ Radial Pulses (R), 2+ Radial Pulses (L) Gastrointestinal: Normal Bowel Sounds, Non Tender, Soft Back: Normal Inspection, Vertebral Tenderness (thoracic) Extremity: Normal Capillary Refill, No Pedal Edema Neurologic/Psychiatric: Alert, Oriented x3 Skin: Normal Color, Warm/Dry Lymphatic: No Adenopathy Progress/Results/Core Measures Results/Orders My Orders Orders - ALEJANDRO ZAMORA Ketorolac Injection (Toradol Injection) (12/25/16 19:32) Vital Signs/I&O Vital Sign - Last 12Hours 12/25/16 19:28 Temp 97.1 Pulse 73 Resp 18 B/P (MAP) 125/71 Pulse Ox 98 O2 Delivery Room Air Blood Pressure Mean: 89 Progress Note : Time: 19:54 Progress Note pain meds and will touch bases with a [facility] Neuro action finisher to get a F/U appt. Will refill the Gabapentin and baclofen. Will see what neuro wnats to do about steroids. He has been on thm for about 7 months with about the past 4 weeks being out. Consults Consults : Consults Notes [facility] Tr[facility] Transfer coord. Bing Stevenson NEurologist 1944: 2020: Dr Stevenson returned call and will pass info off to Dr Gill and the coordinator and he should expect a call in the next day or two. She is ok rumaht [employer] in gabapentin and continuing prednisone. Departure Impression Impression: Primary Impression: Transverse myelitis Disposition: 01 HOME, SELF-CARE Condition: Stable Departure-Patient Inst. Decision time for Depature: 20:32 Referrals: [facility] (PCP/Family) Primary Care Physician Patient Instructions: Prednisone Add. Discharge Instructions: Take the prednisone one tablet every morning. Increase the Gabapentin to 600mg three times a day. Increase the baclofen to 10 mg. Establish with a primary care physician for refills and appointment management. Expect a call from [facility], Dr Gill in the next 2-3 days. If you do not hear from them then the general line is [phone]. All discharge instructions reviewed with patient and/or family. Voiced understanding. Scripts Baclofen (Baclofen) 10 Mg Tablet 10 MG PO TID Y for SPASMS, #90 TAB 0 Refills Prov: ALEJANDRO ZAMORA 12/25/16 Gabapentin (Gabapentin) 600 Mg Tablet 600 MG PO TID, #90 TAB 0 Refills Prov: ALEJANDRO ZAMORA 12/25/16 Prednisone (Prednisone) 20 Mg Tab 20 MG PO DAILY, #30 TAB 0 Refills Prov: ALEJANDRO ZAMORA 12/25/16 Baclofen (Baclofen) 10 Mg Tablet 5 MG PO TID Y for SPASMS for 30 Days, #90 TAB 0 Refills Prov: ALEJANDRO ZAMORA 12/25/16 Copy Copies To 1: MILLY DEWEY TITUS J Dec 25, 2016 19:45
[2016-12-25] MEDS ORDERED: BACL10TA PO (20:37)
[2016-12-25] MEDS ORDERED: PRD20T PO (20:37)
[2016-12-25] MEDS ORDERED: GABA600T2 PO (20:37)
[2016-12-25] MEDS ORDERED: GABAPENTIN 600 MG (NEURONTIN) TAB PO ONE (20:45)
[2016-12-25 20:56] VITALS: BP 125/77
== END 2016-12-25 20:56 | disposition home or self-care (01) ==
LOC: EDUNIT# 19:15 → ER 19:16
DX: G37.3 Acute transverse myelitis in demyelinating disease of central nervous system (principal)
CPT/HCPCS: 96372; 99284

== ENCOUNTER 2017-03-19 18:35 | Emergency (ER) | payer SELFPAY ==
[~2017-03-19] VITALS: Ht 162.6 cm; Wt 68.0 kg
[~2017-03-19 18:35] MED LIST changes: +GABA600T2 PO
--- OUTSIDE RECORDS SUMMARY | 2017-03-19 19:25 | XMS REPORT | Encounter Summary ---
Author Author [facility] Organization [facility] Address Unknown Phone Unavailable Care Team Providers Care Manager Branch Name Role Phone PCP Unavailable Encounter Details Date Type Department Care Team Description 01/25/2017 Orders Only [facility] Steve Philippe MD Physicians - Neurology [address] [facility] [place] [address] [address] [employer] [phone] [place] [address] Social History Tobacco Use Types Packs/Day Years Used Date Never Smoker Smokeless Tobacco: Never Used Alcohol Use Drinks/Week oz/Week Comments No Sex Assigned at Date Recorded Not on file as of this encounter Functional Status Functional Status Response Date of Assessment Does the patient have a hearing impairment: No 08/15/2016 as of this encounter Plan of Treatment Not on fileas of this encounter Results * TEST AUTHORIZATION, [facility] (01/25/2017 4:30 PM) Component Value Ref Range Test Ordered [facility] Test Code [id number] Client Contact DR PHILIPPE See Note, [facility] See Below Comment: The laboratory testing on this patient was verbally requested or confirmed by the ordering physician or his or her authorized industrial relations representative after contact with an employee of [facility]. Federal regulations require that we maintain on file written authorization for all laboratory testing. Accordingly we are asking that the ordering physician or his or her authorized industrial relations representative sign a copy of this report and promptly return it to the client service consultant. Signature: See Note SEE NOTE Comment: Fax number: [phone] Test Performed at: [facility] [address] [address] AIDAN MAHAN DO,MPH Specimen Performing Laboratory [address] [address] * ANTI SSA ANTI SSB AB (01/25/2017 4:30 PM) Component Value Ref Range Anti-SSA <1.0 NEG <1.0 NEG AI Anti-SSB <1.0 NEG <1.0 NEG AI Comment: Test Performed at: [facility] [address] [address] AIDAN MAHAN DO,MPH Specimen [place] [address] * NMO EVALUATION W/REFLEX TO TITER (01/25/2017 4:30 PM) Component Value Ref Range Interpretation, NMO SEE NOTE Autoantibody, IGG Comment: NEGATIVE This test did not detect abnormal levels of anti-AQP4 antibodies. Technical Results SEE NOTE Comment: Interpretive Result Table INTERPRETIVE RESULT: Negative TEST: anti-AQP4 TECHNICAL RESULT: <1.5 REFERENCE RANGE: Negative <3.0 U/ml, Positive >=3.0 U/ml Comments, NMO SEE NOTE Autoantibody IGG Comment: Comments: This result does not exclude a diagnosis of Neuromyelitis Optica. Recommendations: Health care providers, please contact the [facility] Client Services Department at if you wish to speak with a clinical specialty development consultant regarding this test result. Background information: NMO (neuromyelitis optica, Devic disease) is an immune-mediated chronic inflammatory disease that predominantly affects the optic nerve and spinal cord and presents with optic neuritis (ON) and myelitis (1,2). Limited forms of this disease, such as isolated ON, brainstem encephalitis and longitudinal extensive transverses myelitis (LETM), have been referred to as NMO spectrum disorders (NMOSD) (2). NMO was originally thought to be a variant of multiple sclerosis, however, now is recognized as a distinct disease (2). The presence of autoantibodies against aquaporin-4 (AQP4), sometimes referred to as AQP4-IgG or NMO IgG, in patient serum is associated with NMO (3,4). Patients seropositive for AQP4 antibodies present with poor visual outcome and longitudinally extensive spinal cord lesions (3,5). Methods, NMO Autoantibody SEE NOTE IGG Comment: Detection of antibodies was performed by Enzyme Linked Immunosorbent Assay (STARR) methodology. Limitations of analysis: Although rare, false positive or false negative results may occur. All results should be interpreted in the context of clinical findings, relevant history, and other laboratory data. References, NMO SEE NOTE Autoantibody IGG Comment: 1. Gabriela Stacy, et al. (2014) BARRY Neurol 71:276-83. (PMID: 15171426) 2. Alonso, C, et al. (2014) J Neurol 261: 1-16. (PMID: 17145888) 3. Tamia T, et al. (2012) J Neuroophthalmol 32: 107-10. (PMID: 86330098) 4. JadonAUGUST, et al. (2014) Neurology 82: 474-81. (PMID: 60928370) 5. Kory Stewart et al. (2008) Brain 131: 3072-80. (PMID: 27666676) This test was developed and its analytical performance characteristics have been determined by [facility]. It has not been cleared or approved by the U.S. Food and Drug Administration. This assay has been validated pursuant to the CLIA regulations and is used for clinical purposes. Laboratory oversight provided by All Hutson M.D., F.A.A.N., CLIA license [place], [facility] (CLIA # [id number]) Testing performed at: [facility] [address] [place] [id number] REPORT COMMENT: FASTING:NO Test Performed at: [email or web address] [address] [place] [phone] ALL HUTSON MD,F.A.,A.N. Specimen Performing Laboratory [facility] [address] [address] * RPR (DX) W/REFL TITER AND CONFIRMATORY TESTING (01/25/2017 4:30 PM) Component Value Ref Range RPR Screen NON-REACTIVE NON-REACTIVE Comment: Test Performed at: [facility] [address] [place] [phone] AIDAN MAHAN DO,MPH Specimen Performing Laboratory [facility] [address] [place] [address] * ANGIOTENSIN CONV ENZYME (ANKUR) (01/25/2017 4:30 PM) Component Value Ref Range Angiotensin Convert 24 9 - 67 U/L Enzyme Comment: Test Performed at: [facility] [address] [place] [phone] AIDAN MAHAN DO,MPH Specimen Performing Laboratory [facility] [address] [place] [address] * MPO/FL-3 (01/25/2017 4:30 PM) Component Value Ref Range Myeloperoxidase AB <1.0 AI Comment: Value Interpretation ----- <1.0 No Antibody Detected > or=1.0 Antibody Detected Autoantibodies to myeloperoxidase (MPO) are commonly associated with the following small-vessel vasculitides: microscopic polyangiitis, polyarteritis nodosa, Churg-Miladys syndrome, necrotizing and crescentic glomerulonephritis and occasionally granulomatosis with polyangiitis (GPA, Alycia's). The perinuclear IFA pattern, (p-ANCA) is based largely on autoantibody to myeloperoxidase which serves as the primary antigen. These autoantibodies are present in active disease. Serine Protease3 AB <1.0 AI Comment: Value Interpretation ----- <1.0 No Antibody Detected > or=1.0 Antibody Detected Autoantibodies to proteinase-3 (FL-3) are accepted as characteristic for granulomatosis with polyangiitis (GPA, Alycia's), and are detectable in 95% of the histologically proven cases. The cytoplasmic IFA pattern, (c-ANCA), is based largely on autoantibody to FL-3 which serves as the primary antigen. These autoantibodies are present in active disease. Test Performed at: [facility] [address] AIDAN MAHAN DO,MPH Specimen Performing Laboratory [facility] [address] [place] [address] * RHEUMATOID FACTOR (RF) (01/25/2017 4:30 PM) Component Value Ref Range Rheum Factor Screen <14 <14 IU/mL Comment: Test Performed at: [facility] [address] AIDAN MAHAN DO,MPH Specimen Performing Laboratory [facility] [address] [place] [address] * C4 COMPLEMENT 4 (01/25/2017 4:30 PM) Component Value Ref Range Complemnt C4 36 16 - 47 mg/dL Comment: Test Performed at: [facility] [address] [place] [phone] AIDAN MAHAN DO,MPH Specimen Performing Laboratory [facility] [address] [place] [address] * C3 COMPLEMENT 3 (01/25/2017 4:30 PM) Component Value Ref Range Complemnt C3 115 90 - 180 mg/dL Comment: Test Performed at: [facility] [address] [place] [phone] AIDAN MAHAN DO,MPH Specimen Performing Laboratory [facility] [address] [place] [address] * ANTI-NUCLEAR ANTIBODY(MARU) (01/25/2017 4:30 PM) Component Value Ref Range MARU Screen NEGATIVE NEGATIVE Comment: MARU IFA is a first line screen for detecting the presence of up to approximately 150 autoantibodies in various autoimmune diseases. A negative MARU IFA result suggests MARU-associated autoimmune diseases are not present at this time. Visit Physician FAQs for interpretation of all antibodies in the [place], prevalence, and association with diseases at http://education.Kindermint/ faq/OTB763 Test Performed at: [facility] [address] [place] [phone] AIDAN MAHAN DO,MPH Specimen Performing Laboratory [facility] [address] [place] [address] * LYME DISEASE AB IGG IGM (01/25/2017 4:30 PM) Component Value Ref Range Lyme Disease EIA,IGG/IGM <0.90 index Comment: Index Interpretatio n ----- - < 0.90 Negative 0.90-1.09 Equivocal > 1.09 Positive As recommended by the Food and Drug Administration (FDA), all samples with positive or equivocal results in a Borrelia burgdorferi antibody screen will be tested using a blot method. Positive or equivocal screening test results should not be interpreted as truly positive until verified as such using a supplemental assay (e.g., B. burgdorferi blot). The screening test and/or blot for B. burgdorferi antibodies may be falsely negative in early stages of Lyme disease, including the period when erythema migrans is apparent. Test Performed at: [facility] [address] [place] [phone] AIDAN MAHAN DO,MPH Specimen Performing Laboratory [facility] [address] [place] [address] * SED RATE (01/25/2017 4:30 PM) Component Value Ref Range Sed Rate -ESR 2 < OR=15 mm/h Comment: Test Performed at: [facility] [address] [place] [phone] AIDAN MAHAN DO,MPH Specimen Performing Laboratory [facility] [address] [place] [address] * THIOPURINE METHYLTRANSFERASE RBC (01/25/2017 4:30 PM) Component Value Ref Range Thiopurine S-Methyl SEE NOTE (TPMT) Comment: RESULT: NEGATIVE FOR POOR METABOLIZER ALLELES (GENOTYPE TPMT*1/TPMT*1) INTERPRETATION: Analysis of DNA indicates that this patient does not carry any of the TPMT deficiency variants tested. This result does not rule out the possibility that he or she is a carrier of one or more rare variants causing an intermediate (IM) or poor metabolizer (PM) phenotype. Laboratory testing supervised and results monitored by Pita Umana MD, [facility], [facility]. Thiopurine S-methyltranferase (TPMT) is an enzyme involved in the metabolism of drugs such as azathioprine and 6- mercaptopurine. Deficiency of TPMT activity is caused by mutations in the TPMT gene on chromosome 6. This test detects the four most common deficiency variants (TPMT*2 (c.238G>C in exon 5), TPMT*3A (c.460G>A in exon 7 and c.719A>G in exon 10), TPMT*3B (c.460G>A) and TPMT*3C (c.719A>G in exon 10)). Approximately 10% of the -[place] and populations carry one of these four deficiency alleles. If none of these variants are detected for a chromosome, the reported allele will be TPMT*1, however, this result is only inferred. This test cannot rule out the presence of rare variants. The variants are detected by three separate real-time PCR reactions in exons 5, 7 and 10 of the TPMT gene. Each reaction contains two primers for amplifying the sequence of interest and two fluorophore (dye) containing probes for allele detection. The presence of two probes in each reaction allows for genotyping variant and/or wild-type alleles at the polymorphic site in a DNA target sequence. The assay determines the genotype based on the change in fluorescence of the dyes associated with the allele specific probes. DNA-based testing is highly accurate, but rare false negative/ false positive results may occur. Please contact the laboratory if you have questions about these results. Since genetic variation and other problems can affect the accuracy of direct mutation testing, the results should always be interpreted in light of clinical and familial data. This test was developed and its analytical performance characteristics have been determined by [facility]. It has not been cleared or approved by FDA. This assay has been validated pursuant to the CLIA regulations and is used for clinical purposes. Test Performed at: [facility] [address] [place] [address] CATHI BINGHAM MD PHD Specimen Performing Laboratory [facility] [address] [place] [address] * ANCA SCN,MPO,PR3 W/RFLX TITER (01/25/2017 4:30 PM) Component Value Ref Range Myeloperoxidase AB <1.0 <1.0 AI Comment: Value Interpretation <1 .0 AI: No Antibody Detected >or=1.0 AI: Antibody Detected Autoantibodies to myeloperoxidase (MPO) are commonly associated with the following small-vessel vasculitides: microscopic polyangiitis, polyarteritis nodosa, Churg-Miladys syndrome, necrotizing and crescentic glomerulonephritis and occasionally granulomatosis with polyangiitis (GPA, Alycia's). The perinuclear IFA pattern, (p-ANCA) is based largely on autoantibody to myeloperoxidase which serves as the primary antigen. These autoantibodies are present in active disease. Serine Protease3 AB <1.0 <1.0 AI Comment: Va lue Interpretation <1 .0 AI: No Antibody Detected >or=1.0 AI: Antibody Detected Autoantibodies to proteinase-3 (FL-3) are accepted as characteristic for granulomatosis with polyangiitis (GPA, Alycia's), and are detectabale in 95% of the histologically proven cases. The cytoplasmic IFA pattern, (c-ANCA), is based largely on autoantibody to FL-3 which serves as the primary antigen. These autoantibodies are present in active disease. Test Performed at: [facility] [id number] [place] [address] WILLOW FRAZIER MD,PHD ANCA Screen Negative Negative Comment: ANCA Screen includes evaluation for p-ANCA, c-ANCA and atypical p-ANCA. A positive ANCA screen reflexes to titer and pattern(s), e.g., cytoplasmic pattern (c-ANCA), perinuclear pattern (p-ANCA), or atypical p-ANCA pattern. c-ANCA and p-ANCA are observed in vasculitis, whereas atypical p-ANCA is observed in IBD (Inflammatory Bowel Disease). Atypical p-ANCA is detected in about 55% to 80% of patients with ulcerative colitis but only 5% to 25% of patients with Crohn's disease. Specimen Performing Laboratory [facility] [address] [place] [address] in this encounter Visit Diagnoses Not on filein this encounter
--- OUTSIDE RECORDS SUMMARY | 2017-03-19 19:25 | XMS REPORT | Clinical Summary ---
Author Author [facility] Organization [facility] Address Unknown Phone Unavailable Care Team Providers Care Distillery Laborer Name Role Phone PCP Unavailable Source Comments Some departments are not documenting in the electronic medical record. If you do not see the information that you expected, contact Release of Information in the Health Information Management department at [phone] for further assistance in locating additional records.[facility] Allergies Active Allergy Reactions Severity Noted [...] 6 hours as needed for Other... (Spasms). omeprazole DR(+) Take 1 Cap by mouth [...] then remove for 12 hours before repeating. meloxicam (MOBIC) 7.5 mg Take 7.5 mg by mouth Active tablet daily. calcium carbonate/vitamin Take 1 tablet by mouth 180 tablet 1 Active D-3 (OSCAL-500+D) 1250 twice daily. While on 17 mg/200 unit steroids tabletIndications: Transverse myelitis (HCC) ranitidine(+) (ZANTAC) Take 1 tablet by mouth 180 tablet 3 01/26/20 Active 150 mg tabletIndications: twice daily. 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 Urinary retention 08/21/2016 Weakness 08/15/2016 Encounters Date Type Specialty Care Team Description 01/25/2017 Office Visit Neurology Steve Philippe MD Transverse myelitis (HCC) (Primary Dx) 01/25/2017 Orders Only Neurology Steve Philippe MD 01/25/2017 Telephone Neurology Steve Philippe MD 01/03/2017 Telephone Neurology Steve Philippe MD General Question from Last 3 Months Social History Tobacco Use Types Packs/Day Years Used Date Never Smoker Smokeless Tobacco: Never Used Alcohol Use Drinks/Week oz/Week Comments No Sex Assigned at Date Recorded Not on file Last Filed Vital Signs Vital Sign Reading Time Taken Blood Pressure 135/79 01/25/2017 2:56 PM CDT Pulse 78 01/25/2017 2:56 PM CDT Temperature 36.8 C (98.2 F) 08/21/2016 2:33 PM CDT Respiratory Rate - - Oxygen Saturation 97% 08/21/2016 2:33 PM CDT Inhaled Oxygen - - Concentration Weight 69.4 kg (153 lb) 01/25/2017 2:56 PM CDT Height 170.2 cm (5' 7") 01/25/2017 2:56 PM CDT Body Mass Index 23.96 01/25/2017 2:56 PM CDT Plan of Treatment Health Maintenance Due Date Last Done Comments PHYSICAL (COMPREHENSIVE) 07/12/1987 EXAM PERTUSSIS VACCINE 07/12/1991 TETANUS VACCINE 1997 INFLUENZA VACCINE 11/28/2016 Results * RPR (DX) W/REFL TITER AND CONFIRMATORY TESTING (01/25/2017 4:30 PM) Component Value Ref Range RPR Screen NON-REACTIVE NON-REACTIVE Comment: Test Performed at: [facility] [address] [facility] [place] [address] AIDAN MAHAN DO,MPH Specimen Performing Laboratory [facility] [address] [place] [address] * TEST AUTHORIZATION, [facility] 2 (01/25/2017 4:30 PM) Component Value Ref Range Test Ordered [facility] [employer] Test Code [id number] Client Contact DR PHILIPPE See Note, [facility] See Below Comment: The laboratory testing on this patient was verbally requested or confirmed by the ordering physician or his or her authorized security systems sales representative after contact with an employee of [facility]. Federal regulations require that we maintain on file written authorization for all laboratory testing. Accordingly we are asking that the ordering physician or his or her authorized security systems sales representative sign a copy of this report and promptly return it to the client server programmer. Signature: See Note SEE NOTE Comment: Fax number: [phone] Test Performed at: [facility] [id number] [place], [place] [address] [place] [address] AIDAN MAHAN DO,MPH Specimen Performing Laboratory [facility] [address] [place] [address] * NMO EVALUATION W/REFLEX TO TITER (01/25/2017 [...] Recommendations: Health care providers, please contact the [facility] Client Services Department at if you wish to speak with a clinical media consultant outside sales regarding this test result. Background information: NMO [...] SEE NOTE Autoantibody IGG Comment: 1. Gabriela Stacy et al. (2014) BARRY Neurol 71:276-83. (PMID: 81804303) 2. Richa Gupta, et al. (2014) J Neurol 261: 1-16. (PMID: 76440390) 3. Tamia T, et al. (2012) J Neuroophthalmol 32: 107-10. (PMID: 03978192) 4. JadonAUGUST, et al. (2014) Neurology 82: 474-81. (PMID: 78694501) 5. Kory S, et al. (2008) Brain 131: 3072-80. (PMID: 36341876) This test was developed and its analytical performance characteristics have been determined by [facility]. It has not been cleared or approved by the U.S. Food and Drug Administration. This assay has been validated pursuant to the CLIA regulations and is used for clinical purposes. Laboratory oversight provided by All Hutson M.D., F.A.A.N., CLIA license [place], [facility] (CLIA # [id number]) Testing performed at: [facility] [address] [place] [address] REPORT COMMENT: FASTING:NO Test Performed at: [facility] [address] [place] [id number] ALL HUTSON MD,F.A.,A.N. Specimen Performing Laboratory [facility] [address] [place] [address] * ANCA SCN,MPO,PR3 W/RFLX TITER (01/25/2017 4:30 [...] >or=1.0 AI: Antibody Detected Autoantibodies to proteinase-3 (LA-3) are accepted as characteristic for granulomatosis with polyangiitis (GPA, Alycia's), and are detectabale in 95% of the histologically proven cases. The cytoplasmic IFA pattern, (c-ANCA), is based largely on autoantibody to LA-3 which serves as the primary antigen. These autoantibodies are present in active disease. Test Performed at: [facility] [id number] [place] [address] WILLOW FRAZIER MD,PHD ANCA Screen Negative Negative [...] patients with Crohn's disease. Specimen Performing Laboratory [facility] [address] [place] [address] * THIOPURINE METHYLTRANSFERASE RBC (01/25/2017 4:30 PM) [...] and results monitored by Pita Umana MD, FCAP, [facility]. Thiopurine S-methyltranferase (TPMT) is an enzyme involved [...] in exon 10)). Approximately 10% of the -[place]i and populations carry one of these four [...] analytical performance characteristics have been determined by [facility]. It has not been cleared or approved by FDA. This assay has been validated pursuant to the CLIA regulations and is used for clinical purposes. Test Performed at: [facility] [place] [address] [place] [address] CATHI BINGHAM MD PHD Specimen Performing Laboratory [facility] [address] [place] [address] * RHEUMATOID FACTOR (RF) (01/25/2017 4:30 PM) Component Value Ref Range Rheum Factor Screen <14 <14 IU/mL Comment: Test Performed at: [facility] [address] AIDAN MAHAN DO,MPH Specimen Performing Laboratory [facility] [address] [place] [address] * MPO/LA-3 (01/25/2017 4:30 PM) Component Value Ref Range [...] > or=1.0 Antibody Detected Autoantibodies to proteinase-3 (LA-3) are accepted as characteristic for granulomatosis with polyangiitis (GPA, Alycia's), and are detectable in 95% of the histologically proven cases. The cytoplasmic IFA pattern, (c-ANCA), is based largely on autoantibody to LA-3 which serves as the primary antigen. These autoantibodies are present in active disease. Test Performed at: [facility] [address] [place] [address] AIDAN MAHAN DO,MPH Specimen Performing Laboratory [facility] [address] [place] [address] * LYME DISEASE AB IGG IGM (01/25/2017 [...] erythema migrans is apparent. Test Performed at: [facility] [address] [address] [employer] [facility] [place] [address] AIDAN MAHAN DO,MPH Specimen [place] [address] * ANGIOTENSIN CONV ENZYME (ANKUR) (01/25/2017 4:30 PM) Component Value Ref Range Angiotensin Convert 24 9 - 67 U/L Enzyme Comment: Test Performed at: [facility] [place] [phone] AIDAN MAHAN DO,MPH [place]imen [place] [address] * ANTI SSA ANTI SSB AB (01/25/2017 4:30 PM) Component Value Ref Range Anti-SSA <1.0 NEG <1.0 NEG AI Anti-SSB <1.0 NEG <1.0 NEG AI Comment: Test Performed at: [facility] [place] [phone] AIDAN MAHAN DO,MPH [place]imen [place] [address] * SED RATE (01/25/2017 4:30 PM) Component Value Ref Range Sed Rate -ESR 2 < OR=15 mm/h Comment: Test Performed at: [facility] [place] [phone] IADAN MAHAN DO,MPH Specimen [place] [address] * C3 COMPLEMENT 3 (01/25/2017 4:30 PM) Component Value Ref Range Complemnt C3 115 90 - 180 mg/dL Comment: Test Performed at: [facility] [place] [phone] AIDAN MAHAN DO,MPH Specimen [place] [address] * C4 COMPLEMENT 4 (01/25/2017 4:30 PM) Component Value Ref Range Complemnt C4 36 16 - 47 mg/dL Comment: Test Performed at: [facility] [place] [phone] AIDAN MAHAN DO,MPH Specimen [place] [address] * ANTI-NUCLEAR ANTIBODY(MARU) (01/25/2017 4:30 PM) Component Value Ref Range MARU Screen NEGATIVE NEGATIVE Comment: MARU IFA is a first line screen for detecting the presence of up to approximately 150 autoantibodies in various autoimmune diseases. A negative MARU IFA result suggests MARU-associated autoimmune diseases are not present at this time. Visit Physician FAQs for interpretation of all antibodies in the [place], prevalence, and association with diseases at http://education.RestoMesto/ faq/ZIL933 Test Performed at: [facility] [id number] [place] [phone] AIDAN MAHAN DO,MPH Specimen Performing Laboratory [facility] [address] [place] [address] from Last 3 Months
--- OUTSIDE RECORDS SUMMARY | 2017-03-19 19:25 | XMS REPORT | Continuity of Care Document ---
Author Author [facility] Organization [facility] Address Unknown Phone Unavailable Care Team Providers Care Pipe Bowls Paint Trimmer Name Role Phone [facility] Unavailable Unavailable Problems Medications Allergies, Adverse Reactions, Alerts Immunizations Results Vital Signs Encounters Location Location Details Encounter Type Encounter Number Reason For Visit Attending Provider ADM Date DC Date Status Source OUTPATIENT [id number] 08/14/2016 08/14/2016 Active [facility] OP SURGERY [id number] 02/01/2017 Active [facility] OUTPATIENT [id number] 02/18/2017 Active [facility] O KASEY PHILIPPE 02/22/2017 Active [facility] OUTPATIENT [id number] KASEY PHILIPPE 02/22/2017 Active [facility] Procedures Plan of Care Social History Assessment and Plan Family History Value Date Source Advance Directives Order Name Results Value Date Source
--- OUTSIDE RECORDS SUMMARY | 2017-03-19 19:26 | XMS REPORT | Encounter Summary ---
Author Author [facility] Organization [facility] Address Unknown Phone Unavailable Care Team Providers Care Senior Search Marketing Analyst Name Role Phone PCP Unavailable Encounter Details Date Type Department Care Team Description 01/25/2017 Telephone [facility] Steve Shahid MD - Neurology [address] [facility] [address] [place] [address] [facility] [phone] [place] [address] [phone] Social History Tobacco Use Types Packs/Day Years Used Date Never Smoker Smokeless Tobacco: Never Used Alcohol Use Drinks/Week oz/Week Comments No Sex Assigned at Date Recorded Not on file as of this encounter Functional Status Functional Status Response Date of Assessment Does the patient have a hearing impairment: No 08/15/2016 as of this encounter Miscellaneous Notes * Telephone Encounter - Felicitas Santa - 01/25/2017 3:35 PM CDT Medical Services Coordinator needed at office visit today. Interpreters name was Arsen in this encounter Plan of Treatment Not on fileas of this encounter Visit Diagnoses Not on filein this encounter
--- OUTSIDE RECORDS SUMMARY | 2017-03-19 19:26 | XMS REPORT | Encounter Summary ---
Author Author [facility] Organization [facility] Address Unknown Phone Unavailable Care Team Providers Care Machinist Set Up Name Role Phone PCP Unavailable Reason for Referral * Radiology Services Status Reason Specialty Diagnoses / Referred By Referred To Procedures Contact Contact Denied Needs Radiology Diagnoses Steve Shahid Bh2 Nuclear Med Review Elodia [address] myelitis (HCC) [address] [place] [address] NM PET SCAN [address] Phone: WHOLEBODY (HEAD-TOES) [phone] * Radiology Services Status Reason Specialty Diagnoses / Referred By Referred To Procedures Contact Contact Denied Needs Radiology Diagnoses Steve Shahid Mob Mri Review Transverse MD [address] myelitis (HCC) [address] [place], [place] MRI BRACH PLEX & [address] [address] CONT Phone: Fax: * Radiology Services Status Reason Specialty Diagnoses / Referred By Referred To Procedures Contact Contact Denied Needs Radiology Diagnoses Steve Shahid Mob Mri Review Transverse MD [address] myelitis (HCC) [address] [place], [place] MRI C-SPINE WO/W [address] CONTRAST Phone: Fax: Reason for Visit * Reason Comments New Patient e.r follow up (TM) Back pain, bilateral arm and leg numbness Encounter Details Date Type Department Care Team Description 01/25/2017 Office Visit [facility] Steve Shahid MD Transverse myelitis (HCC) Physicians - Neurology [address] [facility] (Primary Dx) [facility] [place] [address] [address] [facility] [address] [phone] [place] [address] Social History Tobacco Use Types Packs/Day Years Used Date Never Smoker Smokeless Tobacco: Never Used Alcohol Use Drinks/Week oz/Week Comments No Sex Assigned at Date Recorded Not on file as of this encounter Last Filed Vital Signs Vital Sign Reading Time Taken Blood Pressure 135/79 01/25/2017 2:56 PM CDT Pulse 78 01/25/2017 2:56 PM CDT Temperature - - Respiratory Rate - - Oxygen Saturation - - Inhaled Oxygen - - Concentration Weight 69.4 kg (153 lb) 01/25/2017 2:56 PM CDT Height 170.2 cm (5' 7") 01/25/2017 2:56 PM CDT Body Mass Index 23.96 01/25/2017 2:56 PM CDT in this encounter Functional Status Functional Status Response Date of Assessment Does the patient have a hearing impairment: No 08/15/2016 as of this encounter Progress Notes * Steve Shahid MD - 01/25/2017 2:30 PM CDT Formatting of this note may be different from the original. Date of Service: 01/25/2017 Subjective: Rashard Curtis is a 36 y.o. male for follow up of transveres myelitis . History of Present Illness The patient does not speak Persian and interview was done through an full time staff interpreter. Rashard Curtis is a 36 y.o. is male originally from [facility] who presents here with a history of an episode of left sided upper back pain that within hours went down to involve both legs and then the left arm within hours he was taken to an outside hospital and given IVIG for ? GBS, he did not improve nad then in July 2016 he had an MRI of C spine and T spine done with multiple dorsal lesions with no enhancement and was diagnosed with Transverse myelitis and was discharged on Prensione taper and he for some reason could not be followed up and he now presents with continuous pain in the legs and tightness in addition to walking with a crutch, no urinary, bowel symptoms and no erectile dysfunction I personally checked the Gabapentin dose witht he patient and he takes 1 cap in the morning and one at night. He also takes 20mg po prednisone daily and he does not take any Ranitidine or Vit D/Ca. Previous Studies(These are my personal notes on reviewing the MRI images and not an interpretation): MRI Brain: Few scattered non-specific lesions MRI spine: Multiple small posterior non enhancing T lesions from C4-T2 Other tests: CSF: WCC Protein Glucose OCBS Electrophysiology Not done Allergies Allergen Reactions Iodinated Contrast- Oral And Iv Dye ITCHING Patient states he gets itchy all over when given CT iodinated contrast, has not ever been pre-medicated before. Past Medical History: Diagnosis Date Neuropathy (HCC) Family History: Diabetes father Social history: Smoking: Dorian Alcohol:Denies Illicit drugs: Denies Driving: Yes no issues Occupation: [employer] Review of Systems Musculoskeletal: Positive for back pain. Neurological: Positive for weakness and numbness. All other systems reviewed and are negative. Objective: calcium carbonate/vitamin D-3 (OSCAL-500+D) 1250 mg/200 unit tablet Take 1 Tab by mouth twice daily. While on steroids gabapentin (NEURONTIN) 300 mg capsule Take 1 Cap by mouth three times daily. (Patient taking differently: Take 300 mg by mouth twice daily.) lidocaine (LIDODERM) 5 % topical patch Apply 1 Patch topically to affected area daily. Apply patch for 12 hours, then remove for 12 hours before repeating. LORazepam (ATIVAN) 1 mg tablet Take 1 mg by mouth every 6 hours as needed for Other... (Spasms). meloxicam (MOBIC) 7.5 mg tablet Take 7.5 mg by mouth daily. omeprazole DR(+) (PRILOSEC) 20 mg capsule Take 1 Cap by mouth daily before breakfast. While on steroids prednisone (DELTASONE) 20 mg tablet 60mg daily x 2 weeks, 50mg daily x 2 weeks, 40mg daily x 2 weeks with further taper to be determined by follow up. tiZANidine (ZANAFLEX) 4 mg tablet Take 1 Tab by mouth three times daily. Vitals: 01/25/17 1456 BP: 135/79 Pulse: 78 Weight: 69.4 kg (153 lb) Body mass index is 24.69 kg/(m^2). Physical Exam General Exam:- HEENT: Normal. Cardio vascular: normal rate and rhythem, no murmurs Pulmonary: Clear resp sounds no wheeze or crackles Abdominal exam: soft, non tender, +ve bowel sounds. Neurological exam:- Mental Status Exam: Alert oriented . Speech and Language:Assessed through full time staff interpreter, appropriate answers, no dysarthria Cranial Nerve Exam: Cranial Nerve II Right Left Visual Acuity 20/40 20/40 Pupil Equally reactive to light No RAPD Equally reactive to light No RAPD Visual [place] No deficit detected No deficit detected Fundoscopic No pallor no papilledma No pallor no papilledma Cranial Nerves III-XII Right Left III, IV, (EOM's) Intact No nystagmus no diplopia Intact No nystagmus no diplopia V Intact Intact VII Intact Intact VIII Intact Intact IX, X Intact Intact XI Intact Intact XII Intact Intact Nystagmus: None Motor: R L R L Hip flexors 5 5 Shoulder Abductors 5 5 Hip extensors 5 5 Elbow flexors 5 5 Elbow extensors 5 5 Knee flexors 5 5 Wrist flexors 5 5 Knee extensors 5 5 Wrist extensors 5 5 Ankle dorsiflexors 5 5 Finger flexors 5 5 Ankle plantar flexors 5 5 Finger abductors 5 (5th digit weakness) Fingers extensors 5 5 Fith/4th digits weak Bulk and Tone: Upper Extremity R L Atrophy No No Increased Tone No No Lower Extremity R L Atrophy No No Increased Tone No No Reflexes R L Biceps ++ ++ Brachioradialis ++ ++ Triceps ++ ++ Knee +++ +++ Ankle +++ +++ Reflexes R L Plantar Up going Up going Sensory Examination Pin Prick: R L Upper Extremity Intact Intact Lower Extremity Intact to pain but decreased to temp Intact to pain but decreased to temp Sensory Examination Light Touch: R L Upper Extremity Intact Intact Lower Extremity Intact Intact Sensory Examination: Joint position sense R L Fingers Intact Intact Toes Intact Intact Ankle Sensory examination: Vibration in Seconds R L Fingers 18 secs 18 secs Toes 11 secs 10 secs Ankle Cerebellar/Fine Motor R L Finger nose finger No ataxia no dysmetrria No ataxia no dysmetrria Heel to che No ataxia no dysmetrria No ataxia no dysmetrria Gait: Antalgic and difficulty with tip toeing and heel walking difficulty with tander Ambulation Index: 17.78 9 peg hole LH 26.32 RH 27.60 Assessment and Plan: Rashard Curtis is a 36 y.o. male who presents for follow up 6 months after an initial presentation for cervical transverse myelitis. Unfortunately he was lost to follow up and he is still of 20mg po of Oral steroids, his symptoms have slightly improved however there are still signs of Myelopathy and more concerning he has significant pain and tenderness in his left axilla and pain radiating down the C8/T1, medial cord path along with some weakness. To me some of the lesions look extramedullary considerations for inflammatory lesions as neurosarcoidosis are plausible but other possible etiologies have to be considered as well . I explained to him that our task is to try to re-assess the status of his transverse myelitis by investigating few possible causes with the plan to wean him off steroids and start a steroid sparing agent as Azathioprine - Transverse myelitis work up; Lyme,NMO, MARU,ANCA,RF, SSA, SSB, C3,C4, CD4 /C8 ratio, ANKUR, CT chest, - PET whole body, - Repeat MRI of the C spine with MRI of the left Axilla and Brachial plexus - Increased Gabapentin to 600mg in am and 300 QHS - Add Vit D/Calcium and Ranitidine - Check TPMT for the option of starting Azathioprine. - I will add a small dose of Baclofen once his Gabapentin titration is finished - We will also will start a steroid taper after the initial assessment and starting a steroid sparing agent. - I will refer to discuss the images with neuroradiology again. - Follow up in 4 weeks I've communicated all the above with the patient through the full time staff interpreter and he understands. I have spent .60 minutes, estimated counseling time 35 minutes reviewing the patient, the investigations, explaining the condition and going over management plan and treatment options. in this encounter Plan of Treatment Name Priority Associated Diagnoses Order Schedule MRI C-SPINE WO/W CONTRAST Routine Transverse myelitis (HCC) Expected: (Approximate), Expires: 01/25/2018 MRI BRACH PLEX & AXIL WOW CONT Routine Transverse myelitis (HCC) Expected: 01/25/2017 (Approximate), Expires: 01/25/2018 ANTI-NUCLEAR ANTIBODY(MARU) Routine Transverse myelitis (HCC) Expected: 01/25/2017 (Approximate), Expires: 01/25/2018 SED RATE Routine Transverse myelitis (HCC) Ordered: 01/25/2017 LYME DISEASE AB IGG IGM Routine Transverse myelitis (HCC) Ordered: 01/25 C3 COMPLEMENT 3 Routine Transverse myelitis (HCC) Ordered: 01/25/2017 C4 COMPLEMENT 4 Routine Transverse myelitis (HCC) Ordered: 01/25/2017 ANGIOTENSIN CONV ENZYME (ANKUR) Routine Transverse myelitis (HCC) Expected : 01/25/2017 (Approximate), Expires: 01/25/2018 RHEUMATOID FACTOR (RF) Routine Transverse myelitis (HCC) Expected: 01/25 (Approximate), Expires: 01/25/2018 ANTI-NEUT CYTO AB (ANCA/PANCA) Routine Transverse myelitis (HCC) Ordered : 01/25/2017 MPO/DE-3 Routine Transverse myelitis (HCC) Ordered: 01/25/2017 NM PET SCAN WHOLEBODY (HEAD-TOES) Routine Transverse myelitis (HCC) Expected: 01/25/2017 (Approximate), Expires: 01/25/2018 NMO EVALUATION W/REFLEX TO TITER Routine Transverse myelitis (HCC) Ordered: 01/25/2017 as of this encounter Visit Diagnoses Diagnosis Transverse myelitis (HCC) - Primary Other causes of myelitis in this encounter
--- OUTSIDE RECORDS SUMMARY | 2017-03-19 19:26 | XMS REPORT | Encounter Summary ---
Author Author [facility] Organization [facility] Address Unknown Phone Unavailable Care Team Providers Care Photocopier Technician Name Role Phone PCP Unavailable Reason for Visit * Reason Comments General Question Encounter Details Date Type Department Care Team Description 01/03/2017 [facility] Shahid MD General Question Physicians - Neurology [address] [facility] [place] [address] [address] [facility] [phone] [place] [address] Social History Tobacco Use Types Packs/Day Years Used Date Never Smoker Sex Assigned at Date Recorded Not on file as of this encounter Functional Status Functional Status Response Date of Assessment Does the patient have a hearing impairment: No 08/15/2016 as of this encounter Miscellaneous Notes * Telephone Encounter - Danuta Mercado LPN - 01/03/2017 10:15 AM CDT Pt will be scheduled to see Dr. Shahid. * Telephone Encounter - Danuta Mercado LPN - 01/03/2017 10:15 AM CDT ----- Message from Bing Hanson MD sent at 12/25/2016 8:21 PM CDT ----- Regarding: needs appt I'm covering neuro consult call raudel and I received a call from an ED physician at [facility] regarding Rashard Curtis, who missed an appointment with Dr Gill in August 2016. He has transverse myelitis. increased his gabapentin to 600 mg TID. Patient is currently taking prednisone 20 mg daily. He needs a follow up appointment. The number I was given is different than the number in his chart. Could someone please contact him at [phone] and set up a follow up appointment with Dr Gill? Thanks so much. mdg in this encounter Plan of Treatment Not on fileas of this encounter Visit Diagnoses Not on filein this encounter
[2017-03-19] MEDS ORDERED: RX-CYCLOBENZAPRINE 10 MG (FLEXERIL) TAB PPK#3 PO STA (21:00)
[2017-03-19] MEDS ORDERED: predniSONE 20 MG TAB PO ONE (21:00)
--- NOTE | 2017-03-19 21:07 | ED Back Pain ---
General Chief Complaint: General Problems/Pain Stated Complaint: BACK PAIN Nursing Triage Note: PT REPORTS HE WAS SEEN AND TX IN THIS ED FOR TRANSVERSE MYELITIS IN NOVEMBER. HE REPORTS HE WAS PRESCRIBED PREDNISONE, BACLOFEN, AND GABAPENTIN. HE STATES HE IS OUT OF THE THESE MEDICATIONS AND HAS NO PCP. HE IS REQUESTING THIS MEDS BE PRESCRIBED FOR HIM AGAIN. Nursing Sepsis Screen: No Definite Risk Source of Information: Patient Exam Limitations: Language Barrier History of Present Illness Time Seen by Provider: 20:40 Initial Comments Here with complaint of upper back pain between the shoulder blade and spine on the left. Has history of transverse myelitis. Been on prednisone previously and this is helped. He is here for evaluation and hopefully to get a prescription of the prednisone. He states muscle relaxers will sometimes help a little bit as well. He has been on gabapentin and meloxicam and states this really did not help much but did help a little bit. Timing/Duration: 2-3 Days Severity: Moderate Pain/Injury Location: Back Radiation: Other (states legs feel tight but denies weakness) Associated Symptoms: muscle spasms, No weakness, No numbness in legs/feet, No sensory/motor loss, No lower back pain, No loss of bladder control, No loss of bowel control Allergies and Home Medications Allergies Coded Allergies: No Allergy Information Available (Unverified , 05/14/14) Home Medications Baclofen 10 Mg Tablet, 5 MG PO TID PRN for SPASMS for 30 Days, #90 Ref 0 Prescribed by: ALEJANDRO ZAMORA on 12/25/162036 Baclofen 10 Mg Tablet, 10 MG PO TID PRN for SPASMS, #90 Ref 0 Prescribed by: ALEJANDRO ZAMORA on 12/25/162036 Gabapentin 600 Mg Tablet, 600 MG PO TID, #90 Ref 0 Prescribed by: ALEJANDRO ZAMORA on 12/25/162036 Prednisone 10 Mg Tab, 10 MG PO DAILY, (Reported) Prednisone 20 Mg Tab, 20 MG PO DAILY, #30 Ref 0 Prescribed by: ALEJANDRO ZAMORA on 12/25/162036 Constitutional: see HPI, No chills, No fever Respiratory: no symptoms reported Cardiovascular: no symptoms reported Gastrointestinal: no symptoms reported, No nausea, No vomiting Genitourinary: no symptoms reported Musculoskeletal: see HPI, back pain, muscle pain, muscle stiffness Skin: no symptoms reported Psychiatric/Neurological: No Symptoms Reported Past Ahjurnh-Zambgt-Epruqi Hx Patient Social History Alcohol Use: Denies Use Recreational Drug Use: No Smoking Status: Never a Smoker 2nd Hand Smoke Exposure: No Recent Foreign Travel: No Contact w/Someone Who Travel: No Recent Infectious Disease Expo: No Recent Hopitalizations: No Physical Abuse: No Sexual Abuse: No Immunizations Up To Date Tetanus Booster (TDap): Unknown Seasonal Allergies Seasonal Allergies: No Surgeries History of Surgeries: No Respiratory History of Respiratory Disorde: No Currently Using CPAP: No Currently Using BIPAP: No Cardiovascular History of Cardiac Disorders: No Neurological History of Neurological Disord: Yes (has been in [facility] for this weakness & pain) Genitourinary History of Genitourinary Disor: No Gastrointestinal History of Gastrointestinal Di: No Musculoskeletal History of Musculoskeletal Dis: Yes Musculoskeletal Disorders: Chronic Back Pain Endocrine History of Endocrine Disorders: No HEENT History of HEENT Disorders: No Cancer History of Cancer: No Psychosocial History of Psychiatric Problem: No Suicide Risk Score: 0 Integumentary History of Skin or Integumenta: No Blood Transfusions History of Blood Disorders: No Reviewed Nursing Assessment Reviewed/Agree w Nursing PMH: Yes Physical Exam Vital Signs Vital Sign - Last 12Hours 03/19/17 19:25 Temp 98.1 Pulse 70 Resp 16 B/P (MAP) 128/74 Pulse Ox 98 O2 Delivery Room Air Capillary Refill : Less Than 3 Seconds General Appearance: No Apparent Distress, WD/WN Neck: Full Range of Motion, Non Tender, Supple Cardiovascular: Regular Rate, Rhythm, No Murmur Respiratory: Lungs Clear, Normal Breath Sounds Back: No CVA Tenderness, No Vertebral Tenderness, Other Extremity: Normal Inspection, Normal Range of Motion, Non Tender Neurologic/Psychiatric: Alert, Oriented x3, No Motor/Sensory Deficits Progress/Results/Core Measures Results/Orders My Orders Orders - DEVANG MAIER MD Prednisone Tablet (Deltasone Tablet) (03/19/17 21:00) Rx-Cyclobenzaprine Tablet (Rx-Flexeril T (03/19/17 21:00) Vital Signs/I&O Vital Sign - Last 12Hours 03/19/17 19:25 Temp 98.1 Pulse 70 Resp 16 B/P (MAP) 128/74 Pulse Ox 98 O2 Delivery Room Air Blood Pressure Mean: 92 Progress Note : Progress Note Seen and evaluated. Evaluation via motor vehicle parts interpreter line. Prednisone 4 mg by mouth. Go pack of Flexeril given. Discharged home with return precautions. Patient verbalize understanding instructions and agreement with plan. Patient does have history of transverse myelitis and has been under the clear of the clinic. Apparently his supposed to get appointment in [place] but has not received the appointment yet. Chart cc Dr. Davalos Departure Impression Impression: Primary Impression: Upper back pain Disposition: HOME, SELF-CARE Condition: Stable Departure-Patient Inst. Decision time for Depature: 21:07 Referrals: NO,LOCAL PHYSICIAN (PCP/Family) Primary Care Physician Patient Instructions: Upper Back Pain (DC) Add. Discharge Instructions: All discharge instructions reviewed with patient and/or family. Voiced understanding. Take medications as directed. Follow-up with your doctor within one week for recheck and further evaluation. Return for worse pain, weakness, numbness between your legs, difficulty with walking or going to the bathroom or other concerns as needed. Scripts Cyclobenzaprine HCl (Cyclobenzaprine HCl) 10 Mg Tablet 10 MG PO Q8H Y for SPASMS, #15 TAB 0 Refills Prov: DEVANG MAIER MD 03/19/17 Prednisone (Prednisone) 20 Mg Tab 40 MG PO DAILY, #12 TAB 0 Refills Prov: DEVANG MAIER MD 03/19/17 Copy Copies To 1: TADEO DAVALOS MD, TIMOTHY D MD Mar 19, 2017 21:07
[2017-03-19] MEDS ORDERED: CYCL10TA9 PO (21:09)
[2017-03-19] MEDS ORDERED: PRD20T PO (21:09)
[2017-03-19 21:15] VITALS: BP 122/71
== END 2017-03-19 21:15 | disposition home or self-care (01) ==
LOC: EDUNIT# 18:35 → ER 18:37
DX: M54.6 Pain in thoracic spine (principal)
CPT/HCPCS: 99283

== ENCOUNTER 2017-04-06 15:54 | Emergency (ER) | payer SELFPAY ==
[~2017-04-06] VITALS: Ht 167.6 cm; Wt 70.3 kg
[~2017-04-06 15:54] MED LIST changes: +CYCL10TA9 PO
--- OUTSIDE RECORDS SUMMARY | 2017-04-06 16:00 | XMS REPORT | Continuity of Care Document ---
Author Author [facility] Organization [facility] Address Unknown Phone Unavailable Care Team Providers Care Manager Club Name Role Phone [employer] Unavailable Unavailable Problems Medications Allergies, Adverse Reactions, Alerts Immunizations Results Vital Signs Encounters Location Location Details Encounter Type Encounter Number Reason For Visit Attending Provider ADM Date DC Date Status Source OUTPATIENT [id number] 08/14/2016 08/14/2016 Active [facility] OP SURGERY [id number] 02/01/2017 Active [facility] OUTPATIENT [id number] 02/18/2017 Active [facility] O KASEY PHILIPPE 02/22/2017 Active [facility] OUTPATIENT [id number] KASEY PHILIPPE 02/22/2017 Active [facility] Procedures Plan of Care Social History Assessment and Plan Family History Value Date Source Advance Directives Order Name Results Value Date Source
--- OUTSIDE RECORDS SUMMARY | 2017-04-06 16:01 | XMS REPORT | Encounter Summary ---
Author Author [facility] Organization [facility] Address Unknown Phone Unavailable Care Team Providers Care Housing Court Judge Name Role Phone PCP Unavailable Reason for Referral * Radiology Services Status Reason Specialty Diagnoses / Referred By Referred To Procedures Contact Contact Denied Needs Radiology Diagnoses Steve Shahid Bh2 Nuclear Med Review Elodia Hunt [address] myelitis (HCC) [address] [address] [place] PET SCAN [address] Phone: WHOLEBODY (HEAD-TOES) [phone] * Radiology Services Status Reason Specialty Diagnoses / Referred By Referred To Procedures Contact Contact Denied Needs Radiology Diagnoses Steve Shahid Mob Mri Review Transverse MD [address] myelitis (HCC) [address] [place], [place] MRI BRACH PLEX & [id number] AXIL WOW CONT Phone: Fax: * Radiology Services Status Reason Specialty Diagnoses / Referred By Referred To Procedures Contact Contact Denied Needs Radiology Diagnoses Steve Shahid Mob Mri Review Transverse MD [address] myelitis (HCC) [address] [place], [place] MRI C-SPINE WO/W 10770 [id number] CONTRAST Phone: Fax: Reason for Visit * Reason Comments New Patient e.r follow up (TM) Back pain, bilateral arm and leg numbness Encounter Details Date Type Department Care Team Description 01/25/2017 Office Visit [facility] Steve Shahid MD Transverse myelitis (HCC) Physicians - Neurology [address] [facility] (Primary Dx) [facility] [place] [address] [address] [phone] [place] [address] Social History Tobacco Use Types [...] Present Illness The patient does not speak Slovenian and interview was done through an ux architect. Rashard Curtis is a 36 y.o. 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 Speech and Language:Assessed through ux architect, appropriate answers, no dysarthria Cranial Nerve Exam: [...] the above with the patient through the ux architect and he understands. I have spent .60 [...] Routine Transverse myelitis (HCC) Ordered : 01/25/2017 MPO/AK-3 Routine Transverse myelitis (HCC) Ordered: 01/25/2017 NM PET SCAN WHOLEBODY (HEAD-TOES) Routine Transverse myelitis (HCC) Expected: 01/25/2017 (Approximate), Expires: 01/25/2018 NMO EVALUATION W/REFLEX TO TITER Routine Transverse myelitis (HCC) Ordered: 01/25/2017 as of this encounter Visit Diagnoses Diagnosis Transverse myelitis (HCC) - Primary Other causes of myelitis in this encounter
--- OUTSIDE RECORDS SUMMARY | 2017-04-06 16:01 | XMS REPORT | Encounter Summary ---
Author Author [facility] Organization [facility] Address Unknown Phone Unavailable Care Team Providers Care Paper Cone Drying Machine Operator Name Role Phone PCP Unavailable Encounter Details Date Type Department Care Team Description 01/25/2017 Telephone [facility] Steve Shahid MD - Neurology [address] [facility] [address] [place] [address] [facility] [phone] [place] [address] [phone] Social History Tobacco Use Types Packs/Day Years [...] Felicitas Santa - 01/25/2017 3:35 PM CDT Rn Registry needed at office visit today. Interpreters name was Arsen in this encounter Plan of Treatment Not on fileas of this encounter Visit Diagnoses Not on filein this encounter
--- OUTSIDE RECORDS SUMMARY | 2017-04-06 16:01 | XMS REPORT | Clinical Summary ---
Author Author [facility] Organization [facility] Address Unknown Phone Unavailable Care Team Providers Care Tumble Tailstock Turret Lathe Operator Name Role Phone PCP Unavailable Source Comments Some departments are not documenting in the electronic medical record. If you do not see the information that you expected, contact Release of Information in the Health Information Management department at [phone] for further assistance in locating additional records.[facility] Allergies Active Allergy Reactions Severity Noted Date [...] MD 01/25/2017 Telephone Neurology Steve Philippe MD from Last 3 Months Social History Tobacco [...] Screen NON-REACTIVE NON-REACTIVE Comment: Test Performed at: [facility] [address] [place] [address] AIDAN MAHAN DO,MPH Specimen Performing Laboratory [facility] [address] [place] [address] * TEST AUTHORIZATION, [facility] 2 (01/25/2017 4:30 PM) Component Value Ref Range Test Ordered SJOGREN'S ANTIBODIES Test Code [id number] Client Contact DR PHILIPPE See Note, [facility] See Below Comment: The laboratory testing on this patient was verbally requested or confirmed by the ordering physician or his or her authorized treasury representative after contact with an employee of [employer]. Federal regulations require that we maintain on file written authorization for all laboratory testing. Accordingly we are asking that the ordering physician or his or her authorized treasury representative sign a copy of this report and promptly return it to the client engagement manager. Signature: See Note SEE NOTE Comment: Fax number: [phone] Test Performed at: [facility] [address] [place] [phone] AIDAN MAHAN DO,MPH Specimen Performing Laboratory [facility] [address] [place] [address] * NMO EVALUATION W/REFLEX TO TITER (01/25/2017 [...] Recommendations: Health care providers, please contact the [employer] Client Services Department at if you wish to speak with a clinical netsuite consultant regarding this test result. Background information: [...] et al. (2014) BARRY Neurol 71:276-83. (PMID: 34264137) 2. Richa Gupta et al. (2014) J Neurol 261: 1-16. (PMID: 53382834) 3. Tamia T, et al. (2012) J Neuroophthalmol 32: 107-10. (PMID: 93013214) 4. JadonAUGUST, et al. (2014) Neurology 82: 474-81. (PMID: 06355395) 5. Kory S, et al. (2008) Brain 131: 3072-80. (PMID: 96130803) This test was developed and its analytical performance characteristics have been determined by [facility]. It has not been cleared or approved by the U.S. Food and Drug Administration. This assay has been validated pursuant to the CLIA regulations and is used for clinical purposes. Laboratory oversight provided by All Hutson M.D., F.A.A.N., CLIA license [place], [facility] (CLIA # [id number]) Testing performed at: [facility] [address] [place] [address] REPORT COMMENT: FASTING:NO Test Performed at: [facility] [address] [place] [phone] ALL HUTSON MD,F.A.,A.N. Specimen Performing Laboratory [facility] [address] [place] [address] * ANCA SCN,MPO,PR3 W/RFLX TITER (01/25/2017 4:30 [...] >or=1.0 AI: Antibody Detected Autoantibodies to proteinase-3 (DE-3) are accepted as characteristic for granulomatosis with polyangiitis (GPA, Alycia's), and are detectabale in 95% of the histologically proven cases. The cytoplasmic IFA pattern, (c-ANCA), is based largely on autoantibody to DE-3 which serves as the primary antigen. These autoantibodies are present in active disease. Test Performed at: [facility] [id number] [place] [phone] WILLOW FRAZIER MD,PHD ANCA Screen Negative Negative [...] patients with Crohn's disease. Specimen Performing Laboratory [facility] [address] [place] [address] * THIOPURINE METHYLTRANSFERASE RBC (01/25/2017 4:30 PM) [...] and results monitored by Pita Umana MD, AP, [facility]. Thiopurine S-methyltranferase (TPMT) is an [...] in exon 10)). Approximately 10% of the -British and populations carry one of these four [...] analytical performance characteristics have been determined by [employer] [facility]. It has not been cleared or approved by FDA. This assay has been validated pursuant to the CLIA regulations and is used for clinical purposes. Test Performed at: [facility]/[address] [facility] [address] [place] [address] CATHI BINGHAM MD PHD Specimen Performing Laboratory [facility] [address] [place] [address] * RHEUMATOID FACTOR (RF) (01/25/2017 4:30 PM) Component Value Ref Range Rheum Factor Screen <14 <14 IU/mL Comment: Test Performed at: [facility] [address] AIDAN MAHAN DO,MPH Specimen Performing Laboratory [facility] [address] [place] [address] * MPO/DE-3 (01/25/2017 4:30 PM) Component Value Ref Range [...] > or=1.0 Antibody Detected Autoantibodies to proteinase-3 (DE-3) are accepted as characteristic for granulomatosis with polyangiitis (GPA, Alycia's), and are detectable in 95% of the histologically proven cases. The cytoplasmic IFA pattern, (c-ANCA), is based largely on autoantibody to DE-3 which serves as the primary antigen. These autoantibodies are present in active disease. Test Performed at: [facility] [facility] [place] [address] AIDAN MAHAN DO,MPH Specimen Performing Laboratory [facility] [address] [place] [address] * LYME DISEASE AB IGG IGM (01/25/2017 [...] erythema migrans is apparent. Test Performed at: [place] [address] AIDAN MAHAN DO,MPH Specimen Performing Laboratory [facility] [address] [place] [address] * ANGIOTENSIN CONV ENZYME (ANKUR) (01/25/2017 4:30 PM) Component Value Ref Range Angiotensin Convert 24 9 - 67 U/L Enzyme Comment: Test Performed at: [facility] [place] [phone] AIDAN MAHAN DO,MPH [place] [address] * ANTI SSA ANTI SSB AB (01/25/2017 4:30 PM) Component Value Ref Range Anti-SSA <1.0 NEG <1.0 NEG AI Anti-SSB <1.0 NEG <1.0 NEG AI Comment: Test Performed at: [place] [address] AIDAN MAHAN DO,MPH [place] [address] * SED RATE (01/25/2017 4:30 PM) Component Value Ref Range Sed Rate -ESR 2 < OR=15 mm/h Comment: Test Performed at: [facility] [place] [phone] AIDAN MAHAN DO,MPH [place] [address] * C3 COMPLEMENT 3 (01/25/2017 4:30 PM) Component Value Ref Range Complemnt C3 115 90 - 180 mg/dL Comment: Test Performed at: [facility] [place] [phone] AIDAN MAHAN DO,MPH [place] [address] * C4 COMPLEMENT 4 (01/25/2017 4:30 PM) Component Value Ref Range Complemnt C4 36 16 - 47 mg/dL Comment: Test Performed at: [facility] [place] [phone] AIDAN MAHAN DO,MPH [place] [address] * ANTI-NUCLEAR ANTIBODY(MARU) (01/25/2017 4:30 PM) Component Value Ref Range MARU Screen NEGATIVE NEGATIVE Comment: MARU IFA is a first line screen for detecting the presence of up to approximately 150 autoantibodies in various autoimmune diseases. A negative MARU IFA result suggests MARU-associated autoimmune diseases are not present at this time. Visit Physician FAQs for interpretation of all antibodies in the [place], prevalence, and association with diseases at http://education.Meican/ faq/IXN573 Test Performed at: [facility] [address] [place] [address] AIDAN MAHAN DO,MPH Specimen Performing Laboratory [facility] [address] [place] [address] from Last 3 Months
--- OUTSIDE RECORDS SUMMARY | 2017-04-06 16:01 | XMS REPORT | Encounter Summary ---
Author Author [facility] Organization [facility] Address Unknown Phone Unavailable Care Team Providers Care Gear Tooth Grinding Machine Operator Name Role Phone PCP Unavailable Encounter Details Date Type Department Care Team Description 01/25/2017 Orders Only [facility] Steve Philippe MD Physicians - Neurology [address] [facility] [place] [address] [address] [employer] [phone] [place] [address] Social History Tobacco Use Types [...] ordering physician or his or her authorized consumer sales representative after contact with an employee of [facility]. Federal regulations require that we maintain on file written authorization for all laboratory testing. Accordingly we are asking that the ordering physician or his or her authorized consumer sales representative sign a copy of this report and promptly return it to the client services account manager. Signature: See Note SEE NOTE Comment: Fax number: [phone] Test Performed at: [facility] [address] [address] AIDAN MAHAN DO,MPH Specimen Performing Laboratory [address] [address] * ANTI SSA ANTI SSB AB (01/25/2017 4:30 PM) Component Value Ref Range Anti-SSA <1.0 NEG <1.0 NEG AI Anti-SSB <1.0 NEG <1.0 NEG AI Comment: Test Performed at: [facility] [address] [address] AIDAN MAHAN DO,MPH Specimen [place] [address] * NMO EVALUATION W/REFLEX TO TITER (01/25/2017 [...] Recommendations: Health care providers, please contact the [facility] Client Services Department at if you wish to speak with a clinical oracle manufacturing consultant regarding this test result. Background information: [...] et al. (2014) BARRY Neurol 71:276-83. (PMID: 24933469) 2. Alonso, C, et al. (2014) J Neurol 261: 1-16. (PMID: 66308571) 3. Tamia T, et al. (2012) J Neuroophthalmol 32: 107-10. (PMID: 13431919) 4. JadonAUGUST, et al. (2014) Neurology 82: 474-81. (PMID: 24688452) 5. Kory Stewart et al. (2008) Brain 131: 3072-80. (PMID: 01511980) This test was developed and its analytical performance characteristics have been determined by [facility]. It has not been cleared or approved by the U.S. Food and Drug Administration. This assay has been validated pursuant to the CLIA regulations and is used for clinical purposes. Laboratory oversight provided by All Hutson M.D., F.A.A.N., CLIA license [place], [facility] (CLIA # [id number]) Testing performed at: [facility] [address] [place] [id number] REPORT COMMENT: FASTING:NO Test Performed at: [facility] [address] [place] [phone] ALL HUTSON MD,F.A.,A.N. Specimen Performing Laboratory [facility] [address] [address] * RPR (DX) W/REFL TITER AND CONFIRMATORY TESTING (01/25/2017 4:30 PM) Component Value Ref Range RPR Screen NON-REACTIVE NON-REACTIVE Comment: Test Performed at: [facility] [address] [place] [phone] AIDAN MAHAN DO,MPH Specimen Performing Laboratory [facility] [address] [place] [address] * ANGIOTENSIN CONV ENZYME (ANKUR) (01/25/2017 4:30 PM) Component Value Ref Range Angiotensin Convert 24 9 - 67 U/L Enzyme Comment: Test Performed at: [facility] [address] [place] [phone] AIDAN MAHAN DO,MPH Specimen Performing Laboratory [facility] [address] [place] [address] * MPO/ND-3 (01/25/2017 4:30 PM) Component Value Ref Range [...] > or=1.0 Antibody Detected Autoantibodies to proteinase-3 (ND-3) are accepted as characteristic for granulomatosis with polyangiitis (GPA, Alycia's), and are detectable in 95% of the histologically proven cases. The cytoplasmic IFA pattern, (c-ANCA), is based largely on autoantibody to ND-3 which serves as the primary antigen. These autoantibodies are present in active disease. Test Performed at: [facility] [address] AIDAN MAHAN DO,MPH Specimen Performing Laboratory [facility] [address] [place] [address] * RHEUMATOID FACTOR (RF) (01/25/2017 4:30 PM) Component Value Ref Range Rheum Factor Screen <14 <14 IU/mL Comment: Test Performed at: [facility] [address] AIDAN MAHAN DO,MPH Specimen Performing Laboratory [facility] [address] [place] [address] * C4 COMPLEMENT 4 (01/25/2017 4:30 PM) Component Value Ref Range Complemnt C4 36 16 - 47 mg/dL Comment: Test Performed at: [facility] [address] [place] [phone] AIDAN MAHAN DO,MPH Specimen Performing Laboratory [facility] [address] [place] [address] * C3 COMPLEMENT 3 (01/25/2017 4:30 PM) Component Value Ref Range Complemnt C3 115 90 - 180 mg/dL Comment: Test Performed at: [facility] [address] [place] [phone] AIDAN MAHAN DO,MPH Specimen Performing Laboratory [facility] [address] [place] [address] * ANTI-NUCLEAR ANTIBODY(MARU) (01/25/2017 4:30 PM) Component Value Ref Range MARU Screen NEGATIVE NEGATIVE Comment: MARU IFA is a first line screen for detecting the presence of up to approximately 150 autoantibodies in various autoimmune diseases. A negative MARU IFA result suggests MARU-associated autoimmune diseases are not present at this time. Visit Physician FAQs for interpretation of all antibodies in the [place], prevalence, and association with diseases at http://education.Skyfiber/ faq/CBY415 Test Performed at: [facility] [address] [place] [phone] AIDAN MAHAN DO,MPH Specimen Performing Laboratory [facility] [address] [place] [address] * LYME DISEASE AB IGG IGM (01/25/2017 [...] erythema migrans is apparent. Test Performed at: [facility] [address] [place] [phone] AIDAN MAHAN DO,MPH Specimen Performing Laboratory [facility] [address] [place] [address] * SED RATE (01/25/2017 4:30 PM) Component Value Ref Range Sed Rate -ESR 2 < OR=15 mm/h Comment: Test Performed at: [facility] [address] [place] [phone] AIDAN MAHAN DO,MPH Specimen Performing Laboratory [facility] [address] [place] [address] * THIOPURINE METHYLTRANSFERASE RBC (01/25/2017 4:30 PM) [...] and results monitored by Pita Umana MD, [facility]. Thiopurine S-methyltranferase (TPMT) is an enzyme involved [...] in exon 10)). Approximately 10% of the -Stateless and populations carry one of these four [...] analytical performance characteristics have been determined by [facility]. It has not been cleared or approved by FDA. This assay has been validated pursuant to the CLIA regulations and is used for clinical purposes. Test Performed at: [facility] [address] [place] [address] CATHI BINGHAM MD PHD Specimen Performing Laboratory [facility] [address] [place] [address] * ANCA SCN,MPO,PR3 W/RFLX TITER (01/25/2017 4:30 [...] >or=1.0 AI: Antibody Detected Autoantibodies to proteinase-3 (ND-3) are accepted as characteristic for granulomatosis with polyangiitis (GPA, Alycia's), and are detectabale in 95% of the histologically proven cases. The cytoplasmic IFA pattern, (c-ANCA), is based largely on autoantibody to ND-3 which serves as the primary antigen. These autoantibodies are present in active disease. Test Performed at: [facility] [id number] [place] [address] WILLOW FRAZIER MD,PHD ANCA Screen Negative Negative [...] patients with Crohn's disease. Specimen Performing Laboratory [facility] [address] [place] [address] in this encounter Visit Diagnoses Not on filein this encounter
[2017-04-06] MEDS ORDERED: FAMOTIDINE 20 MG (PEPCID) TABLET PO STA (16:51)
--- NOTE | 2017-04-06 16:59 | ED Abdominal Pain ---
General Chief Complaint: Abdominal/GI Problems Stated Complaint: STOMACH PAIN/VOMITING/HEADACHE Nursing Triage Note: PATIENT STATES THAT HE HAS BEEN HAVING PAIN IN HIS UPPER MIDLINE ABDOMINAL AREA SINCE SUNDAY. THIS OCCURS AFTER EVERY TIME HE EATS AND IS SOMETIMES FOLLOWED BY NAUSEA AND VOMITING. Sepsis Screen: No Definite Risk Source of Information: Patient, Family Exam Limitations: Language Barrier (Mohawk-speaking) History of Present Illness Time Seen By Provider: 16:41 Initial Comments Patient presents to ER by private conveyance with a chief complaint that for a couple days she's had progressively worsening pain in his epigastric region immediately after eating. Sometimes it dries him the nausea and even vomiting. There is no blood in the vomit. He's had no surgeries or other significant medical history. He's taking no medicines right now. He has not taken any antacids recently. He has a history of acid reflux and was told he might have ulcers but never had a endoscopy. He was put on some antacids and he said that made it better for a long time but now it's come back and this is how he presented last time. He has had some constipation with his last bowel movement being 3 days ago but he attributes that to his anorexia. He has had no blood in the stool. He has no chest pain, shortness of breath, cough, fever, malaise. He does have mild dysuria. Allergies and Home Medications Allergies Coded Allergies: No Allergy Information Available (Unverified , 05/14/14) Home Medications Baclofen 10 Mg Tablet, 5 MG PO TID PRN for SPASMS for 30 Days, #90 Ref 0 Prescribed by: ALEJANDRO ZAMORA on 12/25/162036 Baclofen 10 Mg Tablet, 10 MG PO TID PRN for SPASMS, #90 Ref 0 Prescribed by: ALEJANDRO ZAMORA on 12/25/162036 Cyclobenzaprine HCl 10 Mg Tablet, 10 MG PO Q8H PRN for SPASMS, #15 Ref 0 Prescribed by: DEVANG MAIER on 03/19/172108 Gabapentin 600 Mg Tablet, 600 MG PO TID, #90 Ref 0 Prescribed by: ALEJANDRO ZAMORA on 12/25/162036 Prednisone 10 Mg Tab, 10 MG PO DAILY, (Reported) Prednisone 20 Mg Tab, 20 MG PO DAILY, #30 Ref 0 Prescribed by: ALEJANDRO ZAMORA on 12/25/162036 Prednisone 20 Mg Tab, 40 MG PO DAILY, #12 Ref 0 Prescribed by: DEVANG MAIER on 03/19/172108 Review of Systems Constitutional: No chills, No diaphoresis EENTM: No Blurred Vision, No Eye Pain Respiratory: Denies Cough, Denies Shortness of Air Cardiovascular: Denies Chest Pain, Denies Lightheadedness, Denies Palpitations , Denies Syncope Gastrointestinal: See HPI, Denies Abdomen Distended, Abdominal Pain, Denies Blood Streaked Stools, Constipated, Denies Diarrhea Musculoskeletal: No back pain, No joint pain Skin: No pruritus, No rash Past Ledzitn-Kmswcz-Jaedjg Hx Patient Social History Alcohol Use: Denies Use Recreational Drug Use: No Smoking Status: Never a Smoker 2nd Hand Smoke Exposure: No Recent Foreign Travel: No Contact w/Someone Who Travel: No Recent Infectious Disease Expo: No Recent Hopitalizations: No Physical Abuse: No Sexual Abuse: No Immunizations Up To Date Tetanus Booster (TDap): Unknown Seasonal Allergies Seasonal Allergies: No Surgeries History of Surgeries: No Respiratory History of Respiratory Disorde: No Currently Using CPAP: No Currently Using BIPAP: No Cardiovascular History of Cardiac Disorders: No Neurological History of Neurological Disord: Yes (has been in [facility] for this weakness & pain) Genitourinary History of Genitourinary Disor: No Gastrointestinal History of Gastrointestinal Di: No Musculoskeletal History of Musculoskeletal Dis: Yes Musculoskeletal Disorders: Chronic Back Pain Endocrine History of Endocrine Disorders: No HEENT History of HEENT Disorders: No Cancer History of Cancer: No Psychosocial History of Psychiatric Problem: No Suicide Risk Score: 0 Integumentary History of Skin or Integumenta: No Blood Transfusions History of Blood Disorders: No Physical Exam Vital Signs VS - Last 72 Hours, by Label 04/06/17 16:12 Temp 98.3 Pulse 82 Resp 18 B/P (MAP) 127/82 (97) Pulse Ox 98 Capillary Refill : Less Than 3 Seconds General Appearance: WD/WN, mild distress HEENT: PERRL/EOMI, pharynx normal Neck: non-tender, normal inspection Respiratory: chest non-tender, lungs clear, normal breath sounds, no respiratory distress Cardiovascular: normal peripheral pulses, regular rate, rhythm, no edema Peripheral Pulses: 2+ Radial Pulses (R), 2+ Radial Pulses (L) Gastrointestinal: normal bowel sounds, soft, No rebound, tenderness ( epigastric region more than suprapubic region. Negative for Serra sign.), other (negative for mesenteric signs.) Extremities: non-tender, normal inspection, no pedal edema, normal capillary refill Neurologic/Psychiatric: alert, normal mood/affect, oriented x 3 Skin: normal color, warm/dry Progress/Results/Core Measures Results/Orders Lab Results Laboratory Tests Test 04/06/17 16:25 04/06/17 16:54 Range/Units White Blood Count 6.7 4.3-11.0 10^3/uL Red Blood Count 5.86 H 4.35-5.85 10^6/uL Hemoglobin 17.3 13.3-17.7 G/DL Hematocrit 48 40-54 % Mean Corpuscular Volume 82 80-99 FL Mean Corpuscular Hemoglobin 30 25-34 PG Mean Corpuscular Hemoglobin Concent 36 32-36 G/DL Red Cell Distribution Width 12.0 10.0-14.5 % Platelet Count 210 130-400 10^3/uL Mean Platelet Volume 11.4 H 7.4-10.4 FL Neutrophils (%) (Auto) 50 42-75 % Lymphocytes (%) (Auto) 38 12-44 % Monocytes (%) (Auto) 10 0-12 % Eosinophils (%) (Auto) 2 0-10 % Basophils (%) (Auto) 1 0-10 % Neutrophils # (Auto) 3.3 1.8-7.8 X 10^3 Lymphocytes # (Auto) 2.6 1.0-4.0 X 10^3 Monocytes # (Auto) 0.6 0.0-1.0 X 10^3 Eosinophils # (Auto) 0.1 0.0-0.3 10^3/uL Basophils # (Auto) 0.1 0.0-0.1 10^3/uL Sodium Level 144 135-145 MMOL/L Potassium Level 3.8 3.6-5.0 MMOL/L Chloride Level 106 98-107 MMOL/L Carbon Dioxide Level 26 21-32 MMOL/L Anion Gap 12 5-14 MMOL/L Blood Urea Nitrogen 10 7-18 MG/DL Creatinine 0.89 0.60-1.30 MG/DL Estimat Glomerular Filtration Rate > 60 BUN/Creatinine Ratio 11 Glucose Level 99 70-105 MG/DL Calcium Level 9.6 8.5-10.1 MG/DL Total Bilirubin 0.6 0.1-1.0 MG/DL Aspartate Amino Transf (AST/SGOT) 23 5-34 U/L Alanine Aminotransferase (ALT/SGPT) 16 0-55 U/L Alkaline Phosphatase 73 40-136 U/L Total Protein 7.9 6.4-8.2 GM/DL Albumin 4.7 H 3.2-4.5 GM/DL Lipase 31 8-78 U/L Urine Color YELLOW Urine Clarity CLEAR Urine pH 7 5-9 Urine Specific [place] 1.010 L 1.016-1.022 Urine Protein NEGATIVE NEGATIVE Urine Glucose (UA) NEGATIVE NEGATIVE Urine Ketones NEGATIVE NEGATIVE Urine Nitrite NEGATIVE NEGATIVE Urine Bilirubin NEGATIVE NEGATIVE Urine Urobilinogen NORMAL NORMAL MG/DL Urine Leukocyte Esterase NEGATIVE NEGATIVE Urine RBC (Auto) NEGATIVE NEGATIVE Urine RBC NONE /HPF Urine WBC NONE /HPF Urine Crystals PRESENT H /LPF Urine Amorphous Sediment MOD RASHAWN URATES H /LPF Urine Bacteria NONE /HPF Urine Casts NONE /LPF Urine Mucus SMALL H /LPF Urine Culture Indicated NO My Orders Orders - ALEJANDRO ZAMORA Cbc With Automated Diff (04/06/17 16:51) Comprehensive Metabolic Panel (04/06/17 16:51) Lipase (04/06/17 16:51) Ua Culture If Indicated (04/06/17 16:51) Lidocaine 2% Viscous 15 Ml (Xylocaine Vi (04/06/17 17:00) Famotidine Tablet (Pepcid Tablet) (04/06/17 16:51) Antacid Suspension (Mylanta Suspension (04/06/17 17:00) Saline Lock/Iv-Start (04/06/17 16:51) Medications Given in ED Current Medications Medications Dose Ordered Sig/Joanne Route Start Time Stop Time Status Last Admin Dose Admin Al Hydrox/Mg Hydrox/Simethicone 30 ml ONCE ONCE PO 04/06/17 17:00 04/06/17 17:01 DC 04/06/17 16:59 30 ML Lidocaine HCl 15 ml ONCE ONCE PO 04/06/17 17:00 04/06/17 17:01 DC 04/06/17 16:59 15 ML Vital Signs/I&O Vital Sign - Last 12Hours 04/06/17 16:12 Temp 98.3 Pulse 82 Resp 18 B/P (MAP) 127/82 (97) Pulse Ox 98 Blood Pressure Mean: 97 Progress Note #1: Time: 17:00 Progress Note History and presentation fit for gastritis versus peptic ulcer disease. Less likely pancreatitis given he has no history of drinking or triglyceridemia. We' ll get some basic labs to include a lipase and check a urine since he's having dysuria area and perineal 6 okay we'll let him follow-up with surgeon Dr. Lazaro for endoscopy outpatient. GI cocktail for therapeutic and diagnostic purposes. Progress Note #2: Time: 18:05 Progress Note The patient's pain is gone after the GI cocktail and his labs are otherwise unremarkable. We will talk to General Surgery about possible endoscopy outpatient. Consults Consults : Consulting Physician: CHUN LAZARO MD Consults Notes 1800: Departure Impression Impression: Primary Impression: Epigastric pain Additional Impression: Gastritis Qualified Codes: K29.50 - Unspecified chronic gastritis without bleeding Disposition: 01 HOME, SELF-CARE Condition: Improved Departure-Patient Inst. Decision time for Depature: 18:07 Referrals: NO,LOCAL PHYSICIAN (PCP/Family) Primary Care Physician Patient Instructions: Peptic Ulcers (DC) Add. Discharge Instructions: Expect a phone call from Dr. Lazaro, General Surgery office early next week. If you don't hear for him by Sunday then you can call his office at [phone]. Please take the Carafate 1 tablet by mouth with food and at night 4 times a day for the next 2 weeks. Please take the omeprazole one capsule by mouth daily for the next 4 weeks. Please return to the ER to begin the vomit blood or have intractable nausea vomiting. All discharge instructions reviewed with patient and/or family. Voiced understanding. Scripts Sucralfate (Carafate) 1 Gm Tablet 1 GM PO QID for 14 Days, #60 TAB 0 Refills Prov: ALEJANDRO ZAMORA 04/06/17 Omeprazole (Omeprazole) 40 Mg Capsule. 40 MG PO DAILY for 30 Days, #30 CAP 0 Refills Prov: ALEJANDRO ZAMORA 04/06/17 Work/School Note: Work Release Form Date Seen in the Emergency Department: Apr 06, 2017 Return to Work: Apr 07, 2017 Restrictions: No Restrictions Copy Copies To 1: CHUN LAZARO MD, TITUS J Apr 06, 2017 16:59
[2017-04-06] MEDS ORDERED: ANTACID SUSP 30 ML UDC (MYLANTA) PO ONE (17:00)
[2017-04-06] MEDS ORDERED: LIDOCAINE 2% VISCOUS 15 ML UDC PO ONE (17:00)
[2017-04-06 17:04] LABS: BILIRUBIN,URINE NEGATIVE (NEGATIVE); KETONES,URINE NEGATIVE (NEGATIVE); LEUKOCYTE ESTERASE ,URINE NEGATIVE (NEGATIVE); NITRITE,URINE NEGATIVE (NEGATIVE); PH,URINE 7 (5-9); PROTEIN,URINE NEGATIVE (NEGATIVE); UROBILINOGEN,URINE NORMAL (NORMAL)
[2017-04-06 17:05] LABS: BASOPHILS # (AUTO) 0.1 10^3/uL (0.0-0.1); BASOPHILS % (AUTO) 1 % (0-10); EOSINOPHILS # (AUTO) 0.1 10^3/uL (0.0-0.3); EOSINOPHILS % (AUTO) 2 % (0-10); LYMPHOCYTES # (AUTO) 2.6 X 10^3 (1.0-4.0); LYMPHOCYTES % (AUTO) 38 % (12-44); MEAN CORPUSCULAR HEMOGLOBIN 30 PG (25-34); MEAN CORPUSCULAR HGB CONC 36 G/DL (32-36); MEAN CORPUSCULAR VOLUME 82 FL (80-99); MEAN PLATELET VOLUME 11.4 FL (7.4-10.4); MONOCYTES # (AUTO) 0.6 X 10^3 (0.0-1.0); MONOCYTES % (AUTO) 10 % (0-12); NEUTROPHILS # (AUTO) 3.3 X 10^3 (1.8-7.8); NEUTROPHILS % (AUTO) 50 % (42-75); PLATELET COUNT 210 10^3/uL (130-400); RED BLOOD COUNT 5.86 10^6/uL (4.35-5.85); WHITE BLOOD COUNT 6.7 10^3/uL (4.3-11.0)
[2017-04-06 17:14] LABS: ALANINE AMINOTRANSFERASE 16 U/L (0-55); ALBUMIN 4.7 GM/DL (3.2-4.5); ANION GAP 12 MMOL/L (5-14); ASPARTATE AMINO TRANSFERASE 23 U/L (5-34); BILIRUBIN,TOTAL 0.6 MG/DL (0.1-1.0); BLOOD UREA NITROGEN 10 MG/DL (7-18); BUN/CREATININE RATIO 11; CALCIUM 9.6 MG/DL (8.5-10.1); CARBON DIOXIDE 26 MMOL/L (21-32); CHLORIDE 106 MMOL/L (98-107); CREATININE SERUM 0.89 MG/DL (0.60-1.30); GFR ESTIMATED > 60; GLUCOSE 99 MG/DL (70-105); LIPASE 31 U/L (8-78); POTASSIUM 3.8 MMOL/L (3.6-5.0); SODIUM 144 MMOL/L (135-145); TOTAL PROTEIN 7.9 GM/DL (6.4-8.2)
[2017-04-06] MEDS ORDERED: OMEP40CA36 PO (18:12)
[2017-04-06] MEDS ORDERED: SUCR1TAB36 PO (18:12)
[2017-04-06 19:20] VITALS: BP 123/82
== END 2017-04-06 19:20 | disposition home or self-care (01) ==
LOC: EDUNIT# 15:54 → ER 15:56
DX: K29.70 Gastritis, unspecified, without bleeding (principal); K21.9 Gastro-esophageal reflux disease without esophagitis
CPT/HCPCS: 36415; 80053; 81000; 83690; 85025